=== PATIENT | female | born 2000 | race Caucasian/White ===

== ENCOUNTER 2024-01-02 11:50 | Inpatient (IN) ==
[2024-01-02] MEDS ORDERED: LIDOCAINE 1% LOCAL 20 ML VIAL INFIL PRN (12:51)
--- NOTE | 2024-01-02 12:53 | Ultrasound Report ---
US OB limited CLINICAL HISTORY: not beat found on bedside ultrasound per MD COMPARISON STUDY: No previous studies for comparison. TECHNIQUE: A limited transabdominal ultrasound was performed to assess for cardiac activi ty. FINDINGS: Please note that a dedicated anatomical survey was not performed. Femur length measur es 6.12 cm which corresponds to an estimated gestational age of 31 weeks and 5 days. No cardiac activity was identified. IMPRESSION: No cardiac activity identified. Findings consistent with demise. ACT 112: Negative or not required by law. Electronically signed by: Casimiro Baxter M.D. 01/02/2024 12:51 PM
[2024-01-02] MEDS: miSOPROStoL 50 MCG TAB PV ONE (13:32)
[2024-01-02 13:43] LABS: Hematocrit (blood only) 39.8 % (37.0-47.0); Hemoglobin 13.6 g/dl (12.0-16.0); Mean Corpuscular Hemoglobin 31.5 pg (25.0-34.0); Mean Corpuscular Hgb Conc 34.2 g/dL (32.0-36.0); Mean Corpuscular Volume 92.1 fL (80.0-100.0); Mean Platelet Volume 9.8 fL (9.4-12.4); Platelet Count 233 K/uL (130-400); RDW Coefficient of Variation 12.2 % (11.5-14.5); RDW Standard Deviation 41.2 fL (36.4-46.3); Red Blood Count 4.32 M/uL (4.20-5.40)
[2024-01-02 13:51] LABS: Albumin Globulin Ratio 1.1 (0.9-2); Albumin Level 3.6 gm/dl (3.4-5.0); BUN Creatinine Ratio 15.6 (10-20); Bilirubin,Total 0.2 mg/dl (0.2-1.0); Calcium 9.6 mg/dl (8.6-10.3); Creatinine Clr Calc Pharmacy 131.8 ml/min; Est GFR (African American) 124.4 ml/min; Est GFR (Non-African American) 107.3 ml/min; Globulin 3.4 gm/dl (2.5-4.0)
[2024-01-02 13:53] LABS: Amphetamines+Metham, Urine Neg (Neg); Barbiturates, Urine Neg (Neg); Benzodiazepine, Urine Neg (Neg); Cocaine, Urine Neg (Neg); MDMA (Ecstacy), Urine Neg (Neg); Marijuana, Urine Neg (Neg); Methadone, Urine Neg (Neg); Opiate, Urine Neg (Neg); Phencyclidine, Urine Neg (Neg)
--- NOTE | 2024-01-02 13:55 | History & Physical Report ---
Date of Service January 02, 2024 Assessment & Plan (1) demise, greater than 22 weeks, delivered, current hospitalization: Plan: Cytotec to induce labor Admission and Anticipated Discharge Date Admission Date: January 02, 2024 History of Present Illness Chief Complaint: decreases movement Primary Care Provider: FELICE PCP 23 F P0000 at 32.2 weeks presents to L&D at [facility] with c/o decreased movement. She states on she noted some decrease in movement and then drank some orange juice and started to feel the baby again. Yesterday evening she states this was the last time she felt any movement before going to sleep. This morning she called and felt no movement and was told to come to the hospital. I did a bedside ultrasound with no heart beat noted. This was confirmed with a formal ultrasound. Allergies Allergy/AdvReac Type Severity Reaction Status Date / Time No Known Allergies Allergy Verified 01/02/24 13:18 Patient History Social History Smoking Status: Unknown if ever smoked Hx Alcohol Use: No Hx Substance Use: No Preferred Language: Mosotho Communication Ability: Effective Fare Enforcement Officer Required: No Beliefs That Will Affect Care: None marital status: Single Current Living Situation: Significant Other OB History primip [employer]ORAGE SOL[employer]IONS ARCHITECT History history of abnormal Pap Review of Systems All systems reviewed & are unremarkable except as noted in HPI & below Physical Exam Constitutional: WD/WN, vitals as above Eyes: PERRL, conjunctivae normal, anicteric sclerae Respiratory: normal respiratory effort, lungs clear to auscultation Cardiovascular: RRR, no murmur, no edema Gastrointestinal (Abdomen): Inspection/Auscultation: abdomen normal to inspection Musculoskeletal: Extremities: extremities normal to inspection Skin: no rashes, warm and dry Neurologic: patellar DTR's 2+ bilat, sensation intact Psychiatric: A+Ox3, euthymic affect Genitourinary: no vaginal lesions, no adnexal mass Manual OB Exam: + cervical dilation fingertip, + cervical effacement 20% and + station high Cytotec 50 mcg placed vaginally. cervix is posterior and firm. Results & Data Vital Signs (Past 12 Hours) Vital Signs Temp Resp 01/02/24 13:38 37.2 C 16 Laboratory Results 01/02/24 13:08 WBC 10.80 RBC 4.32 Hgb 13.6 Hct 39.8 MCV 92.1 MCH 31.5 MCHC 34.2 RDW Std Deviation 41.2 RDW Coeff of Kalee 12.2 Plt Count 233 MPV 9.8 Diagnostic Findings ultrasound confirms demise Code Status & VTE Plan VTE Prophylaxis Plan VTE Prophylaxis will be ordered: No
[2024-01-02] MEDS: miSOPROStoL 50 MCG TAB ONE (16:50)
[2024-01-02] MEDS ORDERED: miSOPROStoL 50 MCG TAB PV SCH (17:30)
--- OUTSIDE RECORDS SUMMARY | 2024-01-02 18:04 | External Medical Summary | Summary of Care ---
Author Name Unknown Organization [facility] Address [address] [facility] [place] [address] Phone [phone] Care Team Providers Care Game Developer Name Role Phone Unavailable Primary Care Provider Unavailabl e Reason for Visit * Reason Comments Outpatient Testing Encounter Details Date Type Department Care Team (Late st Contact Info) Description 11/27/2023 10:20 AM EST Laboratory [facility] [id number] [facility] 132 [facility] [place] [address] Supervision of normal first , antepartum Allergies No known active allergiesdocumented as of this encounter (statuses as of 11/27/2023) Medications Medication Sig Dispensed Refills Start Date End Date Status 6.75-0.2 MG Oral Tablet Take by mouth. 0 Active documented as of this encounter (statuses as of 11/27/2023) Active Problems Problem Noted Date Diagnosed Date Supervision of normal first , antepartu m 07/16/2023 History of abnormal cervical Pap smear 3 Overview: 2021 abnormal pap and colpo done 10/2022 pap wnl Requesting records Estimated Date of Delivery Comme nts Yes 02/25/2024 Based on last me nstrual period of 05/21/2023 documented as of this encounter (statuses as of 11/27/2023) Immunizations Name Administration Dates Next Due TDAP (age 10 and older)(Boostrix) 11/27/2023 documented as of this encounter Social History Tobacco Use Types Packs/Day Years Used Date Smoking Tobacco: Never Smokeless Tobacco: Never Alcohol Use Standard Drinks/Week Comments Not Currently 0 (1 standard drink = 0.6 oz pur e alcohol) Hunger Vital Sign Answer Date Recorded Within the past 12 months, y ou worried that your food would run out before you got the money to buy more. Never true 09/29/20 23 Within the past 12 months, t he food you bought just didn't last and you didn't have money to get more. Never true 09/29/2023 [place] Depression Scale Answer Date Recorded [place] Depression Scale Total 3 11/27/2023 The thought of harming myself has occurred to me . Never 11/27/2023 Estimated Date of Delivery Comme nts Yes 02/25/2024 Based on last me nstrual period of 05/21/2023 Sex and Gender Information Value Date Recorded Sex Assigned at Female 06/29/2023 10:32 AM EDT Gender Identity Female 06/29/2023 10:24 AM EDT Sexual Orientation Straight 06/29/2023 10 :32 AM EDT Job Start Date Occupation Industry Not on file Not on file Not on file documented as of this encounter Plan of Treatment Upcoming Encounters Date Type Department Care Team (Late st Contact Info) Description 12/11/2023 8:45 AM EST Office Visit Gynecology/Obstetrics [facility] [address] [place] [address] Taylor Carlson CRNP [address] [place] [address] 12/25/2023 9:00 AM EST Office Visit Gynecology/Obstetrics [facility] [address] [place] [address] Matilda Rosales PA-C [address] [place] [address] 01/08/2024 9:00 AM EDT Office Visit Gynecology/Obstetrics [facility] [address] [place] [address] Matilda Rosales PA-C [address] [place] [address] 01/22/2024 9:00 AM EDT Office Visit Gynecology/Obstetrics [facility] [address] [place] [address] Matilda Rosales PA-C [address] [place] [address] 01/29/2024 9:30 AM EDT Office Visit Gynecology/Obstetrics [facility] [address] [place] [address] Yasmin Mcgee PA-C [address] [place], [place] [address], [place] [address] 02/05/2024 9:00 AM EDT Office Visit Gynecology/Obstetrics [facility] [address] [place] [address] Matilda Rosaels PA-C [address] [place] [address] 02/12/2024 9:00 AM EDT Office Visit Gynecology/Obstetrics [facility] [address] [place] [address] Matilda Rosales PA-C [address] [place] [address] 02/19/2024 9:00 AM EDT Office Visit Gynecology/Obstetrics [facility] [address] [place] [address] Matilda Rosales PA-C [address] [place] [address] 02/26/2024 10:30 AM EDT [facility] [address] [place] [address] Taylor Carlson CRNP [address] [place] [address] Pending Results Name Type Priority Associated Diagnoses Date /Time CBC WITH WBC DIFFERENTIAL AND ANEMIA REFLEX WORKUP Lab Routine Supervision of normal first , antepartum 11/27/2023 11:18 AM EST SYPHILIS ANTIBODY SCREEN WITH REFLEX TO RPR Lab Routine Supervision of normal first , antepartum 11/27/2023 11:18 AM EST 50-G GESTATIONAL GLUCOSE, 1 HOUR Lab Routine Supervision of normal first , antepartum 11/27/2023 11:18 AM EST ANEMIA CBC Lab Routine Supervision of normal first , antepartum 11/27/2023 11:18 AM EST DIFFERENTIAL, AUTOMATED Lab Routine Supervision of normal first , antepartum 11/27/2023 11:18 AM EST ANEMIA REFLEX CHEMISTRY HOLD Lab Routine Supervision of normal first , antepartum 11/27/2023 11:18 AM EST SYPHILIS ANTIBODY SCREEN Lab Routine Supervision of normal first , antepartum 11/27/2023 11:18 AM EST Health Maintenance Due Date Last Done Comments Depression Screening 2010 Pap Smear 2019 COVID-19 Vaccine ( season) 2023 08/09/2021, 07/12/2021 Influenza Vaccine (FLU shot) (#1) 2023 11/17/2013, 11/04/2012 DTaP,Tdap,and Td Vaccines (8 - Td or Tdap) 11/27/2033 11/27/2023, 09/14/2009, 03/25/2002, Additional history exists Hepatitis B Completed 1998, 04/1998, 1998 GARDASIL-HPV IMMUNIZATION SERIES Completed 10/15/2011, 10/15/2010, 09/14/2009 MENINGOCOCCAL (MENACTRA/MENVEO) Aged Out 01/07/2016, 01/07/2016, 09/14/2009, Additional history exists No longer eligible based on patient's age to complete this topic Pneumococcal Vaccine: Pediatrics (0 to 5 Years) and At-Risk Patients (6 to 64 Years) Aged Out No longer eligible based on patient's age to complete this topic documented as of this encounter Medical Devices Not on filedocumented as of this encounter Visit Diagnoses Diagnosis Supervision of normal first , antepartum documented in this encounter
--- OUTSIDE RECORDS SUMMARY | 2024-01-02 18:04 | External Medical Summary | Summary of Care ---
Author Name Unknown Organization [facility] Address [address] [place] [address] Phone [phone] Care Team Providers Care Supervisor Porcelain Department Name Role Phone Unavailable Primary Care Provider Unavailabl e Reason for Visit * Reason Comments Return Visit Encounter Details Date Type Department Care Team (Late st Contact Info) Description 12/25/2023 9:00 AM EST Office Visit Gynecology/Obstetric s [facility] [address] [place] [address] Matilda Rosales PA-C [address] [place] [address] Supervision of normal first , antepartum* Allergies No known active allergiesdocumented as of this encounter (statuses as of 12/25/2023) Medications Medication Sig Dispensed Refills Start Date End Date Status 6.75-0.2 MG Oral Tablet Take by mouth. 0 Active Breast Pump Dispense double electric breast pump. Dx:Z39.1 1 Each 0 12/11/2023 Active documented as of this encounter (statuses as of 12/25/2023) Active Problems Problem Noted Date Diagnosed Date Supervision of normal first , antepartu m 07/16/2023 History of abnormal cervical Pap smear 3 Overview: 2021 abnormal pap and colpo done 10/2022 pap wnl Requesting records Estimated Date of Delivery Comme nts Yes 02/25/2024 Based on last me nstrual period of 05/21/2023 documented as of this encounter (statuses as of 12/25/2023) Immunizations Name Administration Dates Next Due TDAP [...] money to get more. Never true 09/29/2023 [place] Depression Scale Answer Date Recorded [place] Depression Scale Total 3 11/27/2023 The thought [...] on file documented as of this encounter Last Filed Vital Signs Vital Sign Reading Time Taken Comments Blood Pressure 104/68 12/25/2023 8:43 AM EST Pulse - - Temperature - - Respiratory Rate - - Oxygen Saturation - - Inhaled Oxygen Concentration - - Weight 87.5 kg (193 lb) 12/25/2023 8:43 AM EST Height 175.3 cm (5' 9") 12/25/2023 8:43 AM EST Body Mass Index 28.5 12/25/2023 8:43 AM EST documented in this encounter Progress Notes * Matilda Rosales PA-C - 12/25/2023 9:01 AM EST 31w1d Doing well, no concerns. Denies VB, LOF, contractions. Pos FM. Her sister had baby boy today! Matilda Rosales PA-C documented in this encounter Nursing Notes * Goldie Hernandez LPN - 12/25/2023 8:54 AM EST 31w1d Dropping off fmla- will order picker next visit. documented in this encounter Plan of Treatment Upcoming Encounters Date Type Department Care Team (Late st Contact Info) Description 01/08/2024 9:00 AM EDT Office Visit Gynecology/Obstetrics [facility] [address] [place] [address] Matilda Rosales PA-C [address] [place] [address] 01/22/2024 9:00 AM EDT Office Visit Gynecology/Obstetrics [facility] [address] [place] [address] Matilda Rosales PA-C [address] [place] [address] 01/29/2024 9:30 AM EDT Office Visit Gynecology/Obstetrics [facility] [address] [place] [address] Yasmin Mcgee PA-C [address] [place] [address] [place] [address] 02/05/2024 9:00 AM EDT Office Visit Gynecology/Obstetrics [facility] [address] [place] [address] Matilda Rosales PA-C [address] [place] [address] 02/12/2024 9:00 AM EDT Office Visit Gynecology/Obstetrics [facility] [address] [place] [address] Matilda Rosales PA-C [address] [place] [address] 02/19/2024 9:00 AM EDT Office Visit Gynecology/Obstetrics [facility] [address] [place] [address] Matilda Rosales PA-C [address] [place] [address] Health Maintenance Due Date Last Done Comments [...] Diagnoses Diagnosis Supervision of normal first , antepartum- Primary documented in this encounter
--- OUTSIDE RECORDS SUMMARY | 2024-01-02 18:04 | External Medical Summary | Summary of Care ---
Author Name Unknown Organization [facility] Address [address] [place] [address] Phone [phone] Care Team Providers Care Wealth Management Advisor Name Role Phone Unavailable Primary Care Provider Unavailabl e Reason for Visit * Reason Onset Date Comments Forms Request 12/25/2023 Encounter Details Date Type Department Care Team (Late st Contact Info) Description 12/25/2023 Telephone Gynecology/Obstetrics [facility] [address] [place] [address] Matilda Rosales PA-C [address] [place] [address] Forms Request Allergies No known active allergiesdocumented as of this encounter (statuses as of 12/28/2023) Medications Medication Sig Dispensed Refills Start Date End Date Status 6.75-0.2 MG Oral Tablet Take by mouth. 0 Active Breast Pump Dispense double electric breast pump. Dx:Z39.1 1 Each 0 12/11/2023 Active documented as of this encounter (statuses as of 12/28/2023) Active Problems Problem Noted Date Diagnosed Date Supervision of normal first , antepartu m 07/16/2023 History of abnormal cervical Pap smear Overview: 2021 abnormal pap and colpo done 10/2022 pap wnl Requesting records Estimated Date of Delivery Comme nts Yes 02/25/2024 Based on last me nstrual period of 05/21/2023 documented as of this encounter (statuses as of 12/28/2023) Immunizations Name Administration Dates Next Due TDAP [...] money to get more. Never true 09/29/2023 [place] Depression Scale Answer Date Recorded [place] Depression Scale Total 3 11/27/2023 The thought [...] on file documented as of this encounter Miscellaneous Notes * Telephone Encounter - Goldie Hernandez LPN - 12/28/2023 1:33 PM EDT FMLA signed and in triage for patient pick-up. Copies in scan bin. * Telephone Encounter - Goldie Hernandez LPN - 12/25/2023 8:58 AM EST FMLA forms received 12/25/2023 Would pt like forms faxed no, will shredder picker next visit Does pt need notified when done? no Patient Phone Numbers On Goldie's desk. documented in this encounter Plan of Treatment Upcoming Encounters Date Type Department Care Team (Late st Contact Info) Description 01/08/2024 9:00 AM EDT Office Visit Gynecology/Obstetrics [facility] [address] [place] [address] Matilda Rosales PA-C [address] [place] [address] 01/22/2024 9:00 AM EDT Office Visit Gynecology/Obstetrics [facility] [address] [place] [address] Matilda Rosales PA-C [address] [place] [address] 01/29/2024 9:30 AM EDT Office Visit Gynecology/Obstetrics [facility] [address] [place] [address] Yasmin Mcgee PA-C [address] [place] [address] [place] [address] 02/05/2024 9:00 AM EDT Office Visit Gynecology/Obstetrics [facility] [address] [place] [address] Matilda Rosales PA-C [address] [place] [address] 02/12/2024 9:00 AM EDT Office Visit Gynecology/Obstetrics [facility] [address] [place] [address] Matilda Rosales PA-C [address] [place] [address] 02/19/2024 9:00 AM EDT Office Visit Gynecology/Obstetrics [facility] [address] [place] [address] Matilda Rosales PA-C [address] [place] [address] Health Maintenance Due Date Last Done Comments Depression Screening 2010 Pap Smear 2019 COVID-19 Vaccine (2022- season) 2023 08/09/2021, 07/12/2021 Influenza Vaccine (FLU [...]
--- OUTSIDE RECORDS SUMMARY | 2024-01-02 18:04 | External Medical Summary | Summary of Care ---
Author Name Unknown Organization [facility] Address [address] [facility] [place] [address] Phone [phone] Care Team Providers Care Accredited Farm Manager Name Role Phone Unavailable Primary Care Provider Unavailabl e Reason for Visit * Reason Comments Outpatient Testing Encounter Details Date Type Department Care Team (Late st Contact Info) Description 10/13/2023 2:00 PM EST [facility] [id number] [facility] 132 [facility] [place] [address] Supervision of normal first , antepartum Allergies No known active allergiesdocumented as of this encounter (statuses as of 10/13/2023) Medications Medication Sig Dispensed Refills Start Date End Date Status 6.75-0.2 MG Oral Tablet Take by mouth. 0 Active documented as of this encounter (statuses as of 10/13/2023) Active Problems Problem Noted Date Diagnosed Date Supervision of normal first , antepartu m 07/16/2023 History of abnormal cervical Pap smear 3 Overview: 2021 abnormal pap and colpo done 10/2022 pap wnl Requesting records Estimated Date of Delivery Comme nts Yes 02/25/2024 Based on last me nstrual period of 05/21/2023 documented as of this encounter (statuses as of 10/13/2023) Social History Tobacco Use Types Packs/Day Years [...] money to get more. Never true 09/29/2023 [place] Depression Scale Answer Date Recorded [place] Depression Scale Total 3 07/16/2023 The thought of harming myself has occurred to me . Never 07/16/2023 Estimated Date of Delivery Comme nts Yes [...] Care Team (Late st Contact Info) Description 11/13/2023 8:45 AM EST Office Visit Gynecology/Obstetrics [facility] [address] [place] [address] Jaqueline Horton CRNP [address] [place] [address] 12/11/2023 8:45 AM EST Office Visit Gynecology/Obstetrics [facility] [address] [place] [address] Taylor Carlson CRNP [address] [place] [address] Pending Results Name Type Priority Associated Diagnoses Date /Time MATERNAL SERUM AFP Lab Routine Supervision of normal first , antepartum 10/13/2023 1:48 PM EST Health Maintenance Due Date Last Done Comments Depression Screening 2010 Pap Smear 2019 DTaP,Tdap,and Td Vaccines (7 - Td or Tdap) 09/14/2019 09/14/2009, 03/25/2002, 09/30/1999, Additional history exists COVID-19 Vaccine ( - 2022- season) 2023 08/09/2021, 07/12/2021 Influenza Vaccine (FLU shot) (#1) 2023 11/17/2013, 11/04/2012 Hepatitis B Completed 1998, 04/1998, 1998 GARDASIL-HPV [...]
--- OUTSIDE RECORDS SUMMARY | 2024-01-02 18:04 | External Medical Summary | Summary of Care ---
Author Name Unknown Organization [facility] Address [address] [place] [address] Phone [phone] Care Team Providers Care Radio Equipment Installer Name Role Phone Unavailable Primary Care Provider Unavailabl e Reason for Visit * Reason Onset Date Comments Forms Request 12/25/2023 Encounter Details Date Type Department Care Team (Late st Contact Info) Description 12/25/2023 Telephone Gynecology/Obstetrics [facility] [address] [place] [address] Matilda Rosales PA-C [address] [place] [address] Forms Request Allergies No known active allergiesdocumented [...] money to get more. Never true 09/29/2023 [place] Depression Scale Answer Date Recorded [place] Depression Scale Total 3 11/27/2023 The thought [...] signed and in triage for patient pick-up. * Telephone Encounter - Goldie Hernandez LPN - 12/25/2023 8:58 AM EST FMLA forms received 12/25/2023 Would pt like forms faxed no, will sweet pickle maker next visit Does pt need notified when done? no Patient Phone Numbers On Goldie's desk. documented in this encounter Plan of Treatment Upcoming Encounters Date Type Department Care Team (Late st Contact Info) Description 01/08/2024 9:00 AM EDT Office Visit Gynecology/Obstetrics [facility] [address] [place] [address] Matilda Rosales PA-C [address] [place] [address] 01/22/2024 9:00 AM EDT Office Visit Gynecology/Obstetrics [facility] [address] [place] [address] Matilda Rosales PA-C [address] [place] [address] 01/29/2024 9:30 AM EDT Office Visit Gynecology/Obstetrics [facility] [address] [place] [address] Yasmin Mcgee PA-C [address] [place] [address] [place] [address] 02/05/2024 9:00 AM EDT Office Visit Gynecology/Obstetrics [facility] [address] [place] [address] Matilda Rosales PA-C [address] [place] [address] 02/12/2024 9:00 AM EDT Office Visit Gynecology/Obstetrics [facility] [address] [place] [address] Matilda Rosales PA-C [address] [place] [address] 02/19/2024 9:00 AM EDT Office Visit Gynecology/Obstetrics [facility] [address] [place] [address] Matilda Rosales PA-C [address] [place] [address] Health Maintenance Due Date Last Done Comments [...]
--- OUTSIDE RECORDS SUMMARY | 2024-01-02 18:04 | External Medical Summary | Summary of Care ---
Author Name Unknown Organization [facility] Address [address] [facility] [place] [address] Phone [phone] Care Team Providers Care Alignment Mechanic Name Role Phone Unavailable Primary Care Provider Unavailabl e Reason for Visit * Reason Comments Return Visit Encounter Details Date Type Department Care Team (Late st Contact Info) Description 11/27/2023 10:45 AM EST Office Visit Gynecology/Obstetric s [facility] [address] [place] [address] Matilda Rosales PA-C [address] [place] [address] Supervision of normal first , antepartum*; Need for dxqdkpvbgu-vktzyjy-ju rtussis (Tdap) vaccine Allergies No known active allergiesdocumented as of [...] money to get more. Never true 09/29/2023 [place] Depression Scale Answer Date Recorded [place] Depression Scale Total 3 11/27/2023 The thought [...] Sign Reading Time Taken Comments Blood Pressure 112/68 11/27/2023 10:20 AM EST Pulse - - Temperature - - Respiratory Rate - - Oxygen Saturation - - Inhaled Oxygen Concentration - - Weight 84.4 kg (186 lb) 11/27/2023 10:20 AM EST Height 175.3 cm (5' 9") 11/27/2023 10:20 AM EST Body Mass Index 27.47 11/27/2023 10:20 AM EST documented in this encounter Progress Notes * Matilda Rosales PA-C - 11/27/2023 10:45 AM EST 27w0d Completed third tri labs including glucola today. Counseled on TDaP vaccine, accepts and given. Denies VB, LOF, contractions. Good FM. RTC in 2 weeks Matilda Rosales PA-C documented in this encounter Nursing Notes * Goldie Hernandez LPN - 11/27/2023 10:40 AM EST 27w1d Denies concerns Completing 28 wk labs today, Would like tdap. Patient here for tdap injection. Patient doing well no complaints. Injection given IM as ordered. Patient tolerated well. Patient to follow up as directed. Patient instructed to call if any complications. Patient verbalized understanding of instructions given and her follow up appt for CECILIO Injection site: Left Deltoid Medication Source: Dispensed stock medication documented in this encounter Plan of Treatment Upcoming Encounters Date Type Department Care Team (Late st Contact Info) Description 12/11/2023 8:45 AM EST Office Visit Gynecology/Obstetrics [facility] [address] [place] [address] Taylor Carlson CRNP [address] [place] [address] 12/25/2023 9:00 AM EST Office Visit Gynecology/Obstetrics [facility] [address] [place] [address] Matilda Rosales PA-C [address] [place] [address] 01/08/2024 9:00 AM EDT Office Visit Gynecology/Obstetrics [facility] [address] [place] [address] Matilda Rosales PA-C [address] [place] [address] 01/22/2024 9:00 AM EDT Office Visit Gynecology/Obstetrics [facility] [address] [place] [address] Matilda Rosales PA-C [address] [place] [address] 01/29/2024 9:30 AM EDT Office Visit Gynecology/Obstetrics [facility] [address] [place] [address] Yasmin Mcgee PA-C [address] [place], [place] [address] [address] 02/05/2024 9:00 AM EDT Office Visit Gynecology/Obstetrics [facility] [address] [place] [address] Matilda Rosales PA-C [address] [place] [address] 02/12/2024 9:00 AM EDT Office Visit Gynecology/Obstetrics [facility] [address] [place] [address] Matilda Rosales PA-C [address] [place] [address] 02/19/2024 9:00 AM EDT Office Visit Gynecology/Obstetrics [facility] [address] [place] [address] Matilda Rosales PA-C [address] [place] [address] 02/26/2024 10:30 AM EDT Office Visit Gynecology/Obstetrics [facility] [address] [place] [address] Taylor Carlson CRNP [address] [place] [address] Health Maintenance Due Date Last Done Comments [...] Supervision of normal first , antepartum- Primary Need for mdejhdzndg-bkisiwn-njzkbxadz (Tdap) vaccine Need for prophylactic vaccination with combined wijxxvjlsp-pyqgakn-ccmvpmxwn (DTP) vaccine documented in this encounter
--- OUTSIDE RECORDS SUMMARY | 2024-01-02 18:04 | External Medical Summary | Summary of Care ---
Author Name Unknown Organization [facility] Address [address] [facility] [place] [address] Phone [phone] Care Team Providers Care Windows 7 Deployment Lead Name Role Phone Unavailable Primary Care Provider Unavailabl e Reason for Visit * Reason Comments Return Visit Encounter Details Date Type Department Care Team (Late st Contact Info) Description 10/13/2023 1:45 PM EST Office Visit Gynecology/Obstetric s [facility] [address] [place] [address] BackJaqueline gtz CRNP [address] [place] [address] Supervision of normal first , antepartum* Allergies [...] money to get more. Never true 09/29/2023 [place] Depression Scale Answer Date Recorded [place] Depression Scale Total 3 07/16/2023 The thought [...] Sign Reading Time Taken Comments Blood Pressure 102/64 10/13/2023 1:36 PM EST Pulse - - Temperature - - Respiratory Rate - - Oxygen Saturation - - Inhaled Oxygen Concentration - - Weight 78.9 kg (174 lb) 10/13/2023 1:36 PM EST Height 175.3 cm (5' 9") 10/13/2023 1:36 PM EST Body Mass Index 25.7 10/13/2023 1:36 PM EST documented in this encounter Progress Notes * Jaqueline Horton CRNP - 10/13/2023 1:38 PM EST 20w5d Anatomy scan today, finalized report in progress; +cardiac activity on scan. Feeling movement. No cramping/bleeding. MSAFP ordered. 4 week return JOJO Zimmerman * Sara Doyle LPN - 10/13/2023 1:36 PM EST 20w5d Had anatomy today documented in this encounter Plan of Treatment Upcoming Encounters Date Type Department Care Team (Late st Contact Info) Description 10/13/2023 2:00 PM EST Laboratory Laboratory, [facility] [address] [place] [address] [facility] [address] [place] [address] Supervision of normal first , antepartum 11/13/2023 8:45 AM EST Office Visit Gynecology/Obstetric s [facility] [address] [place] [address] Jaqueline Horton CRNP [address] [place] [address] 12/11/2023 8:45 AM EST Office Visit Gynecology/Obstetric s [facility] [address] [place] [address] Taylor Carlson CRNP [address] [place] [address] Pending Results Name Type Priority Associated Diagnoses Date /Time MATERNAL SERUM AFP Lab Routine Supervision of normal first , antepartum 10/13/2023 1:48 PM EST Scheduled Orders Name Type Priority Associated Diagnoses Orde r Schedule MATERNAL SERUM AFP Lab Routine Supervision of normal first , antepartum Expected: 10/13/2023 (Approximate), Expires: 10/13/2024 Health Maintenance Due Date Last Done Comments Depression Screening 2010 Pap Smear 2019 DTaP,Tdap,and Td Vaccines (7 - Td or Tdap) 09/14/2019 09/14/2009, 03/25/2002, 09/30/1999, Additional history exists COVID-19 Vaccine ( season) 2023 08/09/2021, 07/12/2021 [...] Supervision of normal first , antepartum- Primary Supervision of normal first , antepartum documented in this encounter
--- OUTSIDE RECORDS SUMMARY | 2024-01-02 18:04 | External Medical Summary | Summary of Care ---
Author Name Unknown Organization [facility] Address [address] [facility] [address] Phone [phone] Care Team Providers Care Bag Machine Adjuster Name Role Phone Unavailable Primary Care Provider Unavailabl e Reason for Visit * Reason Comments Return Visit Encounter Details Date Type Department Care Team (Late st Contact Info) Description 12/11/2023 8:45 AM EST Office Visit Gynecology/Obstetric s [facility] [address] [place] [address] Taylor Carlson CRNP [address] [place] [address] Supervision of normal first , antepartum* Allergies No known active allergiesdocumented as of this encounter (statuses as of 12/16/2023) Medications Medication Sig Dispensed Refills Start Date End Date Status 6.75-0.2 MG Oral Tablet Take by mouth. 0 Active Breast Pump Dispense double electric breast pump. Dx:Z39.1 1 Each 0 12/11/2023 Active documented as of this encounter (statuses as of 12/16/2023) Active Problems Problem Noted Date Diagnosed Date Supervision of normal first , antepartu m 07/16/2023 History of abnormal cervical Pap smear 3 Overview: 2021 abnormal pap and colpo done 10/2022 pap wnl Requesting records Estimated Date of Delivery Comme nts Yes 02/25/2024 Based on last me nstrual period of 05/21/2023 documented as of this encounter (statuses as of 12/16/2023) Immunizations Name Administration Dates Next Due TDAP [...] money to get more. Never true 09/29/2023 Sl[place] Depression Scale Answer Date Recorded [place] Depression Scale Total 3 11/27/2023 The thought [...] Sign Reading Time Taken Comments Blood Pressure 98/74 12/11/2023 8:32 AM EST Pulse - - Temperature - - Respiratory Rate - - Oxygen Saturation - - Inhaled Oxygen Concentration - - Weight 86.6 kg (191 lb) 12/11/2023 8:32 AM EST Height 175.3 cm (5' 9") 12/11/2023 8:32 AM EST Body Mass Index 28.21 12/11/2023 8:32 AM EST documented in this encounter Progress Notes * Taylor Carlson CRNP - 12/11/2023 8:58 AM EST 29w1d Complaints: none Feeling well overall. Good FM. No contractions, bleeding, or LOF. Breast pump rx today. JOJO Thrasher documented in this encounter Nursing Notes * Goldie Hernandez LPN - 12/11/2023 8:35 AM EST 29w1d Denies concerns. documented in this encounter Plan of Treatment Upcoming Encounters Date Type Department Care Team (Late st Contact Info) Description 12/25/2023 9:00 AM EST Office Visit Gynecology/Obstetrics [facility] [address] [place] [address] Matilda Rosales PA-C [address] [place] [address] 01/08/2024 9:00 AM EDT Office Visit Gynecology/Obstetrics [facility] [address] [place] [address] Matilda Rosales PA-C [address] [place] [address] 01/22/2024 9:00 AM EDT Office Visit Gynecology/Obstetrics [facility] [address] [place] [address] Matilda Rosales PA-C [address] [place] [address] 01/29/2024 9:30 AM EDT Office Visit Gynecology/Obstetrics [facility] [address] [place] [address] Yasmin Mcgee PA-C [facility] [place] [address] 02/05/2024 9:00 AM EDT Office Visit Gynecology/Obstetrics [facility] [address] [place] [address] Matilda Rosales PA-C [address] [place], [place] [address] 02/12/2024 9:00 AM EDT Office Visit Gynecology/Obstetrics [facility] [address] [place], [place] [address] Matilda Rosales PA-C [address] [place] [address] 02/19/2024 9:00 AM EDT Office Visit Gynecology/Obstetrics [facility] [address] [place], [place] [address] Matilda Rosales PA-C [address] [place], [place] [address] Health Maintenance Due Date Last Done Comments [...]
--- OUTSIDE RECORDS SUMMARY | 2024-01-02 18:04 | External Medical Summary ---
Author Name Unknown Address Unknown Organization [id number]:LABORATORY [facility] - [address] [place] [address] Laboratory Report Ordering Provider Test Date Status SULEMA URRUTIA 11/27/2023 11:18:17 Final Observation Date Value Abnormality Reference (Units ) Status Treponema pallidum Ab [Presence] in Serum by Immunoassay 11/27/2023 11:18:17 Nonreactive Nonreactive Final No serologic evidence of syp hilis. No additional testing clinicially indicated at this time. Consider repeat testing in 2-4 weeks if acute or primary syphilis is suspected. Performing Location LABORATORY [facility] - [address] [place] [address]
--- OUTSIDE RECORDS SUMMARY | 2024-01-02 18:04 | External Medical Summary ---
Author Name Unknown Address Unknown Organization K01:LABORATORY [facility] [place] - [address] [place] [address] Laboratory Report Ordering Provider Test Date Status RENANBACKER 11/27/2023 11:18:17 Final Observation Date Value Abnormality Reference (Units ) Status WBC, Total 11/27/2023 11:18:17 11.88 Above high normal 4 .00-10.80 (K/uL) Final RBC 11/27/2023 11:18:17 3.89 3.85-5.15 (M/uL) Final Hemoglobin 11/27/2023 11:18:17 12.5 12.0-15.3 (g/dL) Final Anemia reflex testing trigge rs on a HGB < 12.0 for Females and HGB < 13.0 for Males in accordance with the WHO Anemia Guidelines
Anemia reflex testing triggers on a HGB < 12.0 for Females and HGB < 13.0 for Males in accordance with the WHO Anemia Guidelines HCT 11/27/2023 11:18:17 37.9 36.0-45.2 (%) Final MCV 11/27/2023 11:18:17 97.4 81.5-97.5 (fL) Final MCH 11/27/2023 11:18:17 32.1 27.0-34.0 (pg) Final MCHC 11/27/2023 11:18:17 33.0 32.0-36.0 (g/dL) Final RDW 11/27/2023 11:18:17 12.6 11.5-15.5 (%) Final Platelets 11/27/2023 11:18:17 286 140-400 (K /uL) Final MPV 11/27/2023 11:18:17 9.6 6.6-11.1 ( fL) Final Nucleated erythrocytes/100 leukocytes [Ratio] in Blood by Automated count 11/27/2023 11:18:17 0 <=0 (/100 WBCs) [facility] Performing Location LABORATORY [facility] - [address] [facility] [address]
--- OUTSIDE RECORDS SUMMARY | 2024-01-02 18:04 | External Medical Summary ---
Author Name Unknown Address Unknown Organization K01:LABORATORY [facility] [place] - [address] [place] [address] Laboratory Report Ordering Provider Test Date Status RENANBACKER 11/27/2023 11:18:17 Final Observation Date Value Abnormality Reference (Units ) Status SYNC LEUKOCYTES IN BLOOD BY AUTOMATED COUNT 11/27/2023 11:18:17 11.88 Above high normal 4.00-10.80 (K/uL) Final Segs 11/27/2023 11:18:17 76.0 Above high normal 40.0-75.0 (%) Final Lymphs % 11/27/2023 11:18:17 18.8 18.0-42.0 (%) Final Monos 11/27/2023 11:18:17 4.0 1.0-11.0 (%) Final Eosinophils 11/27/2023 11:18:17 0.4 0.0-6.0 (%) Final Basos 11/27/2023 11:18:17 0.3 0.0-2.0 (%) Final Immature Granulocyte, Percent 11/27/2023 11:18:17 0.5 0.0-2.0 (%) Final Absolute Segs 11/27/2023 11:18:17 9.03 Above high normal 1.80-7.70 (K/uL) Final Lymphs, absolute 11/27/2023 11:18:17 2.23 1.00-4.80 (K/ul) Final Monos, Abs 11/27/2023 11:18:17 0.47 0.00-1.10 (K/uL) Final Eos, Abs 11/27/2023 11:18:17 0.05 0.00-0.70 (K/uL) Final Basos, Abs 11/27/2023 11:18:17 0.04 0.00-0.20 (K/uL) Final Immature Granulocytes, Number 11/27/2023 11:18:17 0.06 0.00-0.20 (K/uL) Final Performing Location LABORATORY [facility] [place] - [address] [facility] [address]
--- OUTSIDE RECORDS SUMMARY | 2024-01-02 18:04 | External Medical Summary | Summary of Care ---
Author Name Unknown Organization [facility] Address [address] [facility] [place] [address] Phone [phone] Care Team Providers Care Accounting Recruiter Name Role Phone Unavailable Primary Care Provider Unavailabl e Reason for Visit * Reason Comments Return Visit Encounter Details Date Type Department Care Team (Late st Contact Info) Description 11/13/2023 8:45 AM EST Office Visit Gynecology/Obstetric s [facility] [address] [place] [address] BackJaqueline gtz CRNP [address] [place] [address] Supervision of normal first , antepartum* Allergies No known active allergiesdocumented as of this encounter (statuses as of 11/13/2023) Medications Medication Sig Dispensed Refills Start Date End Date Status 6.75-0.2 MG Oral Tablet Take by mouth. 0 Active documented as of this encounter (statuses as of 11/13/2023) Active Problems Problem Noted Date Diagnosed Date Supervision of normal first , antepartu m 07/16/2023 History of abnormal cervical Pap smear Overview: 2021 abnormal pap and colpo done 10/2022 pap wnl Requesting records Estimated Date of Delivery Comme nts Yes 02/25/2024 Based on last me nstrual period of 05/21/2023 documented as of this encounter (statuses as of 11/13/2023) Social History Tobacco Use Types Packs/Day Years [...] money to get more. Never true 09/29/2023 [place] Depression Scale Answer Date Recorded [place] Depression Scale Total 3 07/16/2023 The thought [...] Sign Reading Time Taken Comments Blood Pressure 108/68 11/13/2023 8:31 AM EST Pulse - - Temperature - - Respiratory Rate - - Oxygen Saturation - - Inhaled Oxygen Concentration - - Weight 83.5 kg (184 lb) 11/13/2023 8:31 AM EST Height - - Body Mass Index 27.17 10/13/2023 1:36 PM EST documented in this encounter Progress Notes * Jaqueline Horton CRNP - 11/13/2023 8:35 AM EST 25w1d No bleeding/cramping, + movement. 3rd trimester labs ordered, discussed Tdap. 2 week return JOJO Zimmerman * Lucy Claros LPN - 11/13/2023 8:31 AM EST 25w1d Denies vaginal bleeding/rom + movement No new concerns documented in this encounter Plan of Treatment Upcoming Encounters Date Type Department Care Team (Late st Contact Info) Description 11/27/2023 10:20 AM EST [facility] [address] [place] [address] [facility] [address] [place] [address] 11/27/2023 10:45 AM EST Office Visit Gynecology/Obstetrics [facility] [address] [place] [address] Matilda Rosales PA-C [address] [place] [address] 12/11/2023 8:45 AM EST Office Visit Gynecology/Obstetrics [facility] [address] [place] [address] Taylor Carlson CRNP [address] [place] [address] 12/25/2023 9:00 AM EST Office Visit Gynecology/Obstetrics [facility] [address] [place] [address] Matilda Rosales PA-C [address] [place] [address] 01/08/2024 9:00 AM EDT Office Visit Gynecology/Obstetrics [facility] [address] [place] [address] Matilda Rosales PA-C [address] [place] [address] 01/22/2024 9:00 AM EDT Office Visit Gynecology/Obstetrics [facility] [address] [place] [address] Matilda Rosales PA-C [address] [place] [address] 01/29/2024 9:30 AM EDT Office Visit Gynecology/Obstetrics [facility] [address] [place] [address] Peyton Wang, JOE, CNM [address] [facility] [place] [address] 02/05/2024 9:00 AM EDT Office Visit Gynecology/Obstetrics [facility] [address] [place] [address] Matilda Rosales PA-C [address] [place] [address] 02/12/2024 9:00 AM EDT Office Visit Gynecology/Obstetrics [facility] [address] [place] [address] Matilda Rosales PA-C [address] [place] [address] 02/19/2024 9:00 AM EDT Office Visit Gynecology/Obstetrics [facility] [address] [place] [address] Matilda Rosales PA-C [address] [place] [address] 02/26/2024 10:30 AM EDT Office Visit Gynecology/Obstetrics [facility] [address] [place], [place] [id number] Taylor Carlson CRNP [address] [place] [address] Scheduled Orders Name Type Priority Associated Diagnoses Orde r Schedule CBC WITH WBC DIFFERENTIAL AND ANEMIA REFLEX WORKUP Lab Routine Supervision of normal first , antepartum Expected: 11/27/2023 (Approximate), Expires: 11/13/2024 SYPHILIS ANTIBODY SCREEN WITH REFLEX TO RPR Lab Routine Supervision of normal first , antepartum Expected: 11/27/2023 (Approximate), Expires: 11/13/2024 50-G GESTATIONAL GLUCOSE, 1 HOUR Lab Routine Supervision of normal first , antepartum Expected: 11/27/2023 (Approximate), Expires: 11/13/2024 Health Maintenance Due Date Last Done Comments [...]
--- OUTSIDE RECORDS SUMMARY | 2024-01-02 18:04 | External Medical Summary | Summary of Care ---
Author Name Unknown Organization [facility] Address [address] [facility] [address] Phone [phone] Care Team Providers Care Allopathic Doctor Name Role Phone Unavailable Primary Care Provider Unavailabl e Reason for Visit * Reason Comments Return Visit Encounter Details Date Type Department Care Team (Late st Contact Info) Description 12/11/2023 8:45 AM EST Office Visit Gynecology/Obstetric s [facility] [address] [place] [address] Taylor Carlson CRNP [address] [place] [address] Supervision of normal first , antepartum* Allergies No known active allergiesdocumented as of this encounter (statuses as of 12/11/2023) Medications Medication Sig Dispensed Refills Start Date End Date Status 6.75-0.2 MG Oral Tablet Take by mouth. 0 Active Breast Pump Dispense double electric breast pump. Dx:Z39.1 1 Each 0 12/11/2023 Active documented as of this encounter (statuses as of 12/11/2023) Active Problems Problem Noted Date Diagnosed Date Supervision of normal first , antepartu m 07/16/2023 History of abnormal cervical Pap smear 3 Overview: 2021 abnormal pap and colpo done 10/2022 pap wnl Requesting records Estimated Date of Delivery Comme nts Yes 02/25/2024 Based on last me nstrual period of 05/21/2023 documented as of this encounter (statuses as of 12/11/2023) Immunizations Name Administration Dates Next Due TDAP [...] money to get more. Never true 09/29/2023 [place] Depression Scale Answer Date Recorded [place] Depression Scale Total 3 11/27/2023 The thought [...] [facility] [address] [place] [address] Matilda Rosales PA-C [address] [place] [address] 01/08/2024 9:00 AM EDT Office Visit Gynecology/Obstetrics [facility] [address] [place] [address] Matilda Rosales PA-C [address] [place] [address] 01/22/2024 9:00 AM EDT Office Visit Gynecology/Obstetrics [facility] [address] [place] [address] Matilda Rosales PA-C [address] [place] [address] 01/29/2024 9:30 AM EDT Office Visit Gynecology/Obstetrics [facility] [address] [place] [address] Yasmin Mcgee PA-C [facility] [place] [address] 02/05/2024 9:00 AM EDT Office Visit Gynecology/Obstetrics [facility] [address] [place] [address] Matilda Rosales PA-C [address] [place] [address] 02/12/2024 9:00 AM EDT Office Visit Gynecology/Obstetrics [facility] [address] [place] [address] Matilda Rosales PA-C [address] [place] [address] 02/19/2024 9:00 AM EDT Office Visit Gynecology/Obstetrics [facility] [address] [place] [address] Matilda Rosales PA-C [address] [place] [address] 02/26/2024 10:30 AM EDT Office Visit Gynecology/Obstetrics [facility] [address] [place] [address] Taylor Carlson CRNP [address] [place] [address] Health Maintenance Due Date Last Done Comments [...]
--- OUTSIDE RECORDS SUMMARY | 2024-01-02 18:04 | External Medical Summary ---
Author Name Unknown Address Unknown Organization K0G:LABORATORY [facility] [place] [facility] - [address] [place] [address] Laboratory Report Ordering Provider Test Date Status SULEMA URRUTIA 11/27/2023 11:18:17 Final Observation Date Value Abnormality Reference (Units ) Status Glucose [Moles/volume] in Serum or Plasma --1 hour post 50 g glucose PO 11/27/2023 11:18:17 129 70-129 (mg/dL) Final Performing Location LABORATORY [facility] [place] [facility] - [address] [place] [address]
--- OUTSIDE RECORDS SUMMARY | 2024-01-02 18:04 | External Medical Summary ---
Author Name Unknown Address Unknown Organization : Laboratory Report Ordering Provider Test Date Status SULEMA URRUTIA 10/13/2023 13:48:32 Final Observation Date Value Abnormality Reference (Units ) Status INTERPRETATION 10/13/2023 13:48:32 SEE BELOW Final Screen negative for open NTD . RISK FOR ONTD 10/13/2023 13:48:32 1:369 Final CALC'D GESTATIONAL AGE 1210/13/2023 13:48:32 20.7 Final AFP, SERUM 10/13/2023 13:48:32 117.9 (ng/mL) Final AFP MOM 10/13/2023 13:48:32 2.01 Final Reference Range:
NTD <2 .50
IDD <1.90
TWINS <4.00
TWINS IDD <3.50
TRIPLETS <4.50
The AFP test result indicates that this patient is
screen negative for open NTD. It should be noted
that normal test results can never guarantee the
of a normal baby and that 2-3% of newborns
have some type of physical or mental defect, many
of which are undetectable through any known
diagnostic technique.
This is a screening test, not a diagnostic test.
This risk assessment report is based in part on
demographic data provided by the ordering
physician. Please notify the laboratory promptly
if any data are incorrect. For assistance with
recalculations, please call your local [facility] laboratory. For assistance with
interpretation of these results, please contact
your Local [facility] genetic counselor or
call [phone] ([phone]).
Interpretive Cutoffs
Screen Positive for Open NTD:
> or = 2.50 adjusted MOM
> or = 1.90 adjusted MOM for insulin-dependent diabetics
> or = 4.00 adjusted MOM for twins
> or = 3.50 adjusted MOM for twins insulin-dependent diabetics
> or = 4.50 adjusted MOM for triplets
For additional information, please refer to
[email or web address]
(This link is being provided for
informational/educational purposes only.) DATE OF 10/13/2023 13:48:32 2000 Final COLLECTION DATE 10/13/2023 13:48:32 10/13/2023 Final MATERNAL WEIGHT 10/13/2023 13:48:32 173 (lbs ) Final EST'D DATE OF DELIVERY 10/13/2023 13:48:32 02/25/2024 Final EDGAR DETERMINED BY 10/13/2023 13:48:32 LMP Final MOTHER'S ETHNIC ORIGIN 10/13/2023 13:48:32 WHITE Final NUMBER OF FETUSES 10/13/2023 13:48:32 1 Final INSULIN DEPEND DIABETIC 10/13/2023 13:48:32 NO Final REPEAT SPECIMEN 10/13/2023 13:48:32 NO Final HX OF NEURAL TUBE DEFECTS 10/13/2023 13:48:32 NO Final PREV DOWN SYND 10/13/2023 13:48:32 NO Final DONOR EGG 10/13/2023 13:48:32 NO Final DONOR AGE: EGG RETRIEVAL 10/13/2023 13:48:32 NOT GIVEN Final Test performed by [facility]
[address],
[place] [address]

Spudder: Rina Hamilton MD,PHD,STEPHEN
Test Reported by Raleigh Brooks,
[facility],
[address], [place]
Blaine Douglas M.D., Ph.D., Director of Laboratories
, [place] [id number] Performing Location
--- OUTSIDE RECORDS SUMMARY | 2024-01-02 18:05 | External Medical Summary ---
Author Name Unknown Address Unknown Organization K01:[facility] - [address] [place] [address] Laboratory Report Ordering Provider Test Date Status SHARMIN BALBUENA 07/16/2023 09:50:59 Final Observation Date Value Abnormality Reference (Units ) Status Hep C Ab 07/16/2023 09:50:59 Negative Negative Final Further HCV quantitative adriana ting not performed per protocol. Performing Location [facility] - [address] [place] [address]
--- OUTSIDE RECORDS SUMMARY | 2024-01-02 18:05 | External Medical Summary ---
Author Name Unknown Address Unknown Organization K01:[place] [facility] [place] [facility] [address] [facility] [address] Laboratory Report Ordering Provider Test Date Status SHARMIN BALBUENA 07/16/2023 09:50:59 Final Observation Date Value Abnormality Reference (Units ) Status HIV 1+2 Ab+HIV1 p24 Ag [Presence] in Serum or Plasma by Immunoassay 07/16/2023 09:50:59 Negative Negative Final Negative HIV-1/2 antigen and antibody screening tset results usually indicate the absence of HIV-1 and HIV-2 infection. However, such negative results do not rule-out acute HIV infection. If acute HIV-1 infection is highly suspected, it is recommended that a specimen be submitted for detection of HIV-1 RNA. Performing Location [place] [facility] [place] [facility] [address] [facility] [address]
--- OUTSIDE RECORDS SUMMARY | 2024-01-02 18:05 | External Medical Summary ---
Author Name Unknown Address Unknown Organization K01:[facility]ORY [facility] [place] [address] [place] [address] Laboratory Report Ordering Provider Test Date Status FREIDA BALBUENAOLI 07/16/2023 09:50:59 Final Observation Date Value Abnormality Reference (Units ) Status SYNC LEUKOCYTES IN BLOOD BY AUTOMATED COUNT 07/16/2023 09:50:59 9.46 4.00-10.80 (K/uL) Final Segs 07/16/2023 09:50:59 72.4 40.0-75.0 (%) Final Lymphs % 07/16/2023 09:50:59 22.0 18.0-42.0 (%) Final Monos 07/16/2023 09:50:59 4.5 1.0-11.0 (%) Final Eosinophils 07/16/2023 09:50:59 0.4 0.0-6.0 (%) Final Basos 07/16/2023 09:50:59 0.3 0.0-2.0 (%) Final Immature Granulocyte, Percent 07/16/2023 09:50:59 0.4 0.0-2.0 (%) Final Absolute Segs 07/16/2023 09:50:59 6.84 1.80-7.70 (K/uL) Final Lymphs, absolute 07/16/2023 09:50:59 2.08 1.00-4.80 (K/ul) Final Monos, Abs 07/16/2023 09:50:59 0.43 0.00-1.10 (K/uL) Final Eos, Abs 07/16/2023 09:50:59 0.04 0.00-0.70 (K/uL) Final Basos, Abs 07/16/2023 09:50:59 0.03 0.00-0.20 (K/uL) Final Immature Granulocytes, Number 07/16/2023 09:50:59 0.04 0.00-0.20 (K/uL) Final Performing Location LAB[facility]ATORY [facility] [place] - [address] [facility] [address]
--- OUTSIDE RECORDS SUMMARY | 2024-01-02 18:05 | External Medical Summary | Summary of Care ---
Author Name Unknown Organization [facility] Address [address] [facility] [place] [address] Phone [phone] Care Team Providers Care Mobile Engineer Name Role Phone Unavailable Primary Care Provider Unavailabl e Reason for Visit * Reason Comments New Visit Encounter Details Date Type Department Care Team Description 07/13/2023 Nurse Only Gynecology/Obstetrics [facility] [address] [facility] [place] [address] Gw, Nurse Home Companion [facility] [address] [facility] [place] [address] New Visit Allergies No known active allergiesdocumented as of this encounter (statuses as of 07/13/2023) Medications Medication Sig Dispensed Refills Start Date End Date Status 6.75-0.2 MG Oral Tablet Take by mouth. 0 Active documented as of this encounter (statuses as of 07/13/2023) Social History Tobacco Use Types Packs/Day Years Used Date Smoking Tobacco: Never Smokeless Tobacco: Never Tobacco Cessation:Counseling Given: Not Answered Alcohol Use Standard Drinks/Week Comments Not Currently 0 (1 standard drink = 0.6 oz pur e alcohol) Food Insecurity Answer Date Recorded Within the past 12 months, y ou worried that your food would run out before you got money to buy more. Never true 06/29/2023 Within the past 12 months, t he food you bought just didn't last and you didn't have money to get more. Never true 06/29/2023 Comments Yes Sex Assigned at Date Recorded Female 06/29/2023 10:32 AM EDT documented as of this encounter Last Filed Vital Signs Vital Sign Reading Time Taken Comments Blood Pressure - - Pulse - - Temperature - - Respiratory Rate - - Oxygen Saturation - - Inhaled Oxygen Concentration - - Weight - - Height 175.3 cm (5' 9") 07/13/2023 1:48 PM EDT Body Mass Index - - documented in this encounter Progress Notes * Sosa Wilkins LPN - 07/13/2023 1:48 PM EDT Patient completed telephone nurse intake No transferred records. Are you planning a home delivery?No Pt advised , If at anytime during your you decide to pursue a home , please notify our office. Patient oriented to the Women's Health department and current providers in the practice.We discuss the the options of delivery, [facility] vs [facility] with midwives. Reviewed frequency of visits. Reviewed outreach clinics and how to contact providers during regularoffice hours and after office hours. Education provided [facility] is a way you can talk to your provider online through e-mail. Would you like to sign up, I can activate it for you. ALREADY ACTIVE Patient advised not to use [facility] for urgent related problems. Sosa Wilkins LPN documented in this encounter Plan of Treatment Upcoming Encounters Date Type Specialty Care Team Description 07/16/2023 Imaging Radiology 07/16/2023 Office Visit Gynecology Obstetrics Taylor Carlson CRNP [address] [facility] [place] [address] Health Maintenance Due Date Last Done Comments Hepatitis B (1 of 3 - 3-dose series) 1998 COVID-19 Vaccine (#1) 1998 GARDASIL-HPV IMMUNIZATION SE MUKUND (1 - 2-dose series) 2009 Depression Screening 2010 HIV Screening 2013 Hepatitis C Screening 02/17/2016 DTaP,Tdap,and Td Vaccines (1 - Tdap) 2017 Pap Smear 2019 Influenza Vaccine (FLU shot) (#1) 2023 MENINGOCOCCAL (MENACTRA/MENVEO) Aged Out No longer eligible based on patient's age to complete this topic Pneumococcal Vaccine: Pediat rics (0 to 5 Years) and At-Risk Patients (6 to 64 Years) Aged Out No longer eligible b ased on patient's age to complete this topic documented as of this encounter Medical Devices Not on filedocumented as of this encounter
--- OUTSIDE RECORDS SUMMARY | 2024-01-02 18:05 | External Medical Summary ---
Author Name Unknown Address Unknown Organization K01:[place] [facility] [place] [address] [place] [address] Laboratory Report Ordering Provider Test Date Status SHARMIN BALBUENA 07/16/2023 09:50:59 Final Observation Date Value Abnormality Reference (Units ) Status WBC, Total 07/16/2023 09:50:59 9.46 4.00-10.8 0 (K/uL) Final RBC 07/16/2023 09:50:59 4.51 3.85-5.15 (M/uL) Final Hemoglobin 07/16/2023 09:50:59 14.2 12.0-15.3 (g/dL) Final Anemia reflex testing trigge rs on a HGB < 12.0 for Females and HGB < 13.0 for Males in accordance with the WHO Anemia Guidelines
Anemia reflex testing triggers on a HGB < 12.0 for Females and HGB < 13.0 for Males in accordance with the WHO Anemia Guidelines HCT 07/16/2023 09:50:59 42.0 36.0-45.2 (%) Final MCV 07/16/2023 09:50:59 93.1 81.5-97.5 (fL) Final MCH 07/16/2023 09:50:59 31.5 27.0-34.0 (pg) Final MCHC 07/16/2023 09:50:59 33.8 32.0-36.0 (g/dL) Final RDW 07/16/2023 09:50:59 11.9 11.5-15.5 (%) Final Platelets 07/16/2023 09:50:59 262 140-400 (K /uL) Final MPV 07/16/2023 09:50:59 9.8 6.6-11.1 ( fL) Final Nucleated erythrocytes/100 leukocytes [Ratio] in Blood by Automated count 07/16/2023 09:50:59 0 <=0 (/100 WBCs) Fi nal Performing Location [facility] - [address] [facility] [address]
--- OUTSIDE RECORDS SUMMARY | 2024-01-02 18:05 | External Medical Summary | Summary of Care ---
Author Name Unknown Organization [facility] Address [address] [facility] [place] [address] Phone [phone] Care Team Providers Care Pond Supervisor Name Role Phone Unavailable Primary Care Provider Unavailabl e Reason for Visit * Reason Comments Outpatient Testing Encounter Details Date Type Department Care Team (Late st Contact Info) Description 08/13/2023 10:10 AM EDT Laboratory Laboratory, [facility] [address] [facility] [place] [id number] [facility] [address] [facility] [place] [address] Supervision of normal first , antepartum Allergies No known active allergiesdocumented as of this encounter (statuses as of 08/13/2023) Medications Medication Sig Dispensed Refills Start Date End Date Status 6.75-0.2 MG Oral Tablet Take by mouth. 0 Active documented as of this encounter (statuses as of 08/13/2023) Active Problems Problem Noted Date Diagnosed Date Supervision of normal first , antepartu m 07/16/2023 History of abnormal cervical Pap smear Overview: 2021 abnormal pap and colpo done 10/2022 pap wnl Requesting records Estimated Date of Delivery Comme nts Yes 02/25/2024 Based on last me nstrual period of 05/21/2023 documented as of this encounter (statuses as of 08/13/2023) Social History Tobacco Use Types Packs/Day Years Used Date Smoking Tobacco: Never Smokeless Tobacco: Never Alcohol Use Standard Drinks/Week Comments Not Currently 0 (1 standard drink = 0.6 oz pur e alcohol) Hunger Vital Sign Answer Date Recorded Within the past 12 months, y ou worried that your food would run out before you got the money to buy more. Never true 06/29/20 23 Within the past 12 months, t he food you bought just didn't last and you didn't have money to get more. Never true 06/29/2023 Eden Depression Scale Answer Date Recorded Eden Depression Scale Total 3 07/16/2023 The thought [...] Care Team (Late st Contact Info) Description 09/11/2023 9:00 AM EST Office Visit Gynecology/Obstetrics [facility] [address] [facility] [place] [address] Easton Salgado MD [address] [facility] [place] [address] Pending Results Name Type Priority Associated Diagnoses Date /Time QNATAL ADVANCED (QUEST) Lab Routine Supervision of normal first , antepartum 08/13/2023 10:02 AM EDT Health Maintenance Due Date Last Done Comments Hepatitis B (1 of 3 - 3-dose series) 1998 GARDASIL-HPV IMMUNIZATION SERIES (1 - 2-dose series) 2009 Depression Screening 2010 Pap Smear 2019 DTaP,Tdap,and Td Vaccines (7 - Td or Tdap) 09/14/2019 09/14/2009, 03/25/2002, 09/30/1999, Additional history exists COVID-19 Vaccine ( season) 2023 08/09/2021, 07/12/2021 Influenza Vaccine (FLU shot) (#1) 2023 11/17/2013, 11/04/2012 MENINGOCOCCAL (MENACTRA/MENVEO) Aged Out No longer eligible [...]
--- OUTSIDE RECORDS SUMMARY | 2024-01-02 18:05 | External Medical Summary ---
Author Name Unknown Address Unknown Organization : Laboratory Report Ordering Provider Test Date Status SULEMA URRUTIA 08/13/2023 10:02:09 Final Observation Date Value Abnormality Reference (Units ) Status NUMBER OF FETUSES? 08/13/2023 10:02:09 1 Final ADVANCED MATERNAL AGE? 08/13/2023 10:02:09 NO Final ABNORMAL RAYMOND? 08/13/2023 10:02:09 NO Final ABNORMAL US? 08/13/2023 10:02:09 NOT GIVEN Final PERSONAL/FAM HISTORY? 08/13/2023 10:02:09 NOT GIVEN Final INTERPRETATION 08/13/2023 10:02:09 SEE BELOW Final This specimen showed an expe cted representation of
chromosome 21, 18, and 13 material. Results were
not analyzed or reported for microdeletions. See
'Limitations' below. TRISOMY 21 (T21) 08/13/2023 10:02:09 Negative Final TRISOMY 18 (T18) 08/13/2023 10:02:09 Negative Final TRISOMY 13 (T13) 08/13/2023 10:02:09 Negative Final Y CHROMOSOME 08/13/2023 10:02:09 Detected Final Y CHR. INTERPRETATION 08/13/2023 10:02:09 SEE BELOW Final Consistent with a male fetus . SEX CHROMOSOME 08/13/2023 10:02:09 No aneuploidy Final SEX CHROMOSOME INTERP 08/13/2023 10:02:09 SEE BELOW Final No apparent abnormality was detected. See
'Limitations' below. MICRODELETION 08/13/2023 10:02:09 Opted Out Final MICRODELETION INTERP 08/13/2023 10:02:09 SEE BELOW Final Results were not analyzed or reported for
microdeletions. GESTATIONAL AGE (IN WEEKS) 08/13/2023 10:02:09 12 Final GESTATIONAL AGE (IN DAYS) 08/13/2023 10:02:09 0 Final FRACTION 08/13/2023 10:02:09 13.00% Final LABORATORY COMMENTS 08/13/2023 10:02:09 SEE BELOW Final A portion of the testing was performed at [facility] [place].
Laboratory results and submitted clinical
information reviewed by Daysi Lang, Ph.D., [facility],
[facility]. LIMITATIONS 08/13/2023 10:02:09 SEE BELOW Final QNatal(R) Advanced is a cell -free DNA test that
screens for increased risk of certain
chromosomal abnormalities that may cause
defects, including Trisomy 21 (Down syndrome),
Trisomy 18, Trisomy 13, and certain sex chromosome
abnormalities (i.e., 45,X, 47,XXY, 47,XXX, and
47,XYY), as well as sex. In addition, if
selected as an option, QNatal(R) Advanced can
screen for certain microdeletions (i.e., 22q, 5p,
1p36, 15q, 11q, 8q, and 4p) that may cause
defects. This test does not assess the risk of
abnormalities such as neural tube defects or
ventral wall defects and should not be considered
in isolation from other clinical findings and
laboratory test results.
QNatal(R) Advanced has been validated in thompson
pregnancies for the trisomies and sex chromosome
abnormalities listed above, as well as for
microdeletions, and for the determination of
sex. Sex chromosome aneuploidy analysis is only
performed in thompson pregnancies. The test has
also been validated in twin pregnancies for the
trisomies listed above and for microdeletions, but
not for the sex chromosome abnormalities due to
limited data. The test has not been validated in
higher order pregnancies (more than two) because
limited data is available.
Microdeletion screening is limited to the
specified microdeletion regions (see
'Methodology'). The Y chromosome is analyzed for
the determination of sex. The sensitivity
and specificity of sex determination
analysis may be less than that of the Trisomy 21,
18, and 13 analysis and this determination can be
confounded by vanishing twin syndrome in
pregnancies that were originally multiple
gestation pregnancies. It should be noted that
QNatal(R) Advanced is a quantitative analysis of
maternal and placental cfDNA. As a result, the
accuracy of the screening test results may be
affected by the presence of chromosome
abnormalities or microdeletions that are maternal
or confined placental in origin. False positive
findings involving the examined chromosomes and
microdeletion regions may be due to maternal,
placental, or mosaicism, by vanishing twin
syndrome, or other unexplained causes. SPECIFICATIONS 08/13/2023 10:02:09 SEE BELOW Final Sensitivity Specificity
T21 >99.9% >99.9%
T18 >99.9% >99.9%
T13 >99.9% >99.9%
Accuracy
Y >99.9%
Performance of the QNatal Advanced
laboratory-developed test (LDT) has been
determined based on internal analytical
assessment. METHODOLOGY 08/13/2023 10:02:09 SEE BELOW Final Circulating cell-free (cf) D NA was isolated from
plasma followed by detection on a massively
parallel sequencing platform. Bioinformatic
analysis was performed to determine the
representation of chromosomes 21, 18, 13, X and Y
in circulating cell-free DNA. The representation
of sequences from the critical regions involved in
1p36 microdeletion syndrome (1p36),
Gonzales-Hirschhorn syndrome (4p), Cri-du-chat
syndrome (5p), Low-Giedion syndrome (8p),
Ap syndrome (11q), Prader Willi
syndrome/Angelman syndrome (15q), and DiGeorge
syndrome (22q) is evaluated for the detection of
microdeletions if requested. This test was
developed, and its performance characteristics
have been determined by [facility]. It has not been
cleared or approved by the U.S. Food and Drug
Administration. Performance characteristics refer
to the analytical performance of the test. This
test is performed pursuant to a license agreement
with [employer].
This test was developed and its analytical
performance characteristics have been determined
by [facility]. It has not been cleared or
approved by FDA. This assay has been validated
pursuant to the CLIA regulations and is used for
clinical purposes.
Test performed by [facility]
[address],
[place] [address]

Automotive Light Mechanic: Rina Hamilton MD,PHD,STEPHEN
Test Reported by [facility],
[facility],
[address] [place], [place]
Blaine Douglas M.D., Ph.D., Director of Laboratories
, CLIA [id number] Performing Location
--- OUTSIDE RECORDS SUMMARY | 2024-01-02 18:05 | External Medical Summary ---
Author Name Unknown Address Unknown Organization K01:LABORATORY [facility] [place] - [address] [place] [address] Laboratory Report Ordering Provider Test Date Status SHRAMIN BALBUENA 07/16/2023 09:50:59 Final Observation Date Value Abnormality Reference (Units ) Status Hep B surface Ag 07/16/2023 09:50:59 Negative Neg ative Final Performing Location [facility] - [address] [place] [address]
--- OUTSIDE RECORDS SUMMARY | 2024-01-02 18:05 | External Medical Summary | Summary of Care ---
Author Name Unknown Organization [facility] Address [address] [facility] [place] [address] Phone [phone] Care Team Providers Care Cattle Trader Name Role Phone Unavailable Primary Care Provider Unavailabl e Reason for Visit * Reason Comments Outpatient Testing Encounter Details Date Type Department Care Team Description 07/16/2023 Laboratory Laboratory, [facility] [address] [facility] [place] [id number] [facility] [address] [facility] [place] [address] Encounter for supervision of normal first in first trimester Allergies No known active allergiesdocumented as of this encounter (statuses as of 07/16/2023) Medications Medication Sig Dispensed Refills Start Date End Date Status 6.75-0.2 MG Oral Tablet Take by mouth. 0 Active documented as of this encounter (statuses as of 07/16/2023) Active Problems Problem Noted Date Supervision of normal first , a ntepartum 07/16/2023 History of abnormal cervical Pap smear 0 07/16/2023 Overview: 2021 abnormal pap and colpo done 10/2022 pap wnl Requesting records Estimated Date of Delivery Comme nts Yes 02/25/2024 Based on last me nstrual period of 05/21/2023 documented as of this encounter (statuses as of 07/16/2023) Social History Tobacco Use Types Packs/Day Years [...] money to get more. Never true 06/29/2023 Estimated Date of Delivery Comme nts Yes 02/25/2024 Based on last me nstrual period of 05/21/2023 Sex Assigned at Date Recorded Female 06/29/2023 10:32 AM EDT Job Start Date Occupation Industry Not on file Not on file Not on file documented as of this encounter Plan of Treatment Upcoming Encounters Date Type Specialty Care Team Description 08/13/2023 Office Visit Gynecology Obstetrics Jaqueline Horton CRNP [address] [place] [address] 09/11/2023 Office Visit Gynecology Obstetrics Easton Salgado MD [address] [place] [address] Pending Results Name Type Priority Associated Diagnoses Date /Time RUBELLA IGG ANTIBODY Lab Routine Encounter for supervision of normal first in first trimester 07/16/2023 9:50 AM EDT HEPATITIS B SURFACE ANTIGEN Lab Routine Encounter for supervision of normal first in first trimester 07/16/2023 9:50 AM EDT CBC WITH WBC DIFFERENTIAL AND ANEMIA REFLEX WORKUP Lab Routine Encounter for supervision of normal first in first trimester 07/16/2023 9:50 AM EDT HEPATITIS C ANTIBODY SCREEN WITH PROGRESSION TO HEPATITIS C RNA QUANTITATIVE Lab Routine Encounter for supervision of normal first in first trimester 07/16/2023 9:50 AM EDT TYPE AND SCREEN Lab Routine Encounter for supervision of normal first in first trimester 07/16/2023 9:50 AM EDT SYPHILIS ANTIBODY SCREEN WITH REFLEX TO RPR Lab Routine Encounter for supervision of normal first in first trimester 07/16/2023 9:50 AM EDT HIV ANTIGEN & ANTIBODY SCREEN W/ CONFIRMATION Lab Routine Encounter for supervision of normal first in first trimester 07/16/2023 9:50 AM EDT ANEMIA CBC Lab Routine Encounter for supervision of normal first in first trimester 07/16/2023 9:50 AM EDT DIFFERENTIAL, AUTOMATED Lab Routine Encounter for supervision of normal first in first trimester 07/16/2023 9:50 AM EDT ANEMIA REFLEX CHEMISTRY HOLD Lab Routine Encounter for supervision of normal first in first trimester 07/16/2023 9:50 AM EDT HEPATITIS C ANTIBODY Lab Routine Encounter for supervision of normal first in first trimester 07/16/2023 9:50 AM EDT HEPATITIS C RNA ADD ON Lab Routine Encounter for supervision of normal first in first trimester 07/16/2023 9:50 AM EDT SYPHILIS ANTIBODY SCREEN Lab Routine Encounter for supervision of normal first in first trimester 07/16/2023 9:50 AM EDT Health Maintenance Due Date Last Done Comments Hepatitis B (1 of 3 - 3-dose series) 1998 GARDASIL-HPV IMMUNIZATION SERIES (1 - 2-dose series) 2009 Depression Screening 2010 HIV Screening 2013 Hepatitis C Screening 02/17/2016 Pap Smear 2019 DTaP,Tdap,and Td Vaccines (7 - Td or Tdap) 09/14/2019 09/14/2009, 03/25/2002, 09/30/1999, Additional history exists COVID-19 Vaccine (3 - Moderna series) 10/04/2021 08/09/2021, 07/12/2021 Influenza Vaccine (FLU shot) (#1) [...] as of this encounter Visit Diagnoses Diagnosis Encounter for supervision of normal first in first trimester Supervision of normal first documented in this encounter
--- OUTSIDE RECORDS SUMMARY | 2024-01-02 18:05 | External Medical Summary | Summary of Care ---
Author Name Unknown Organization [facility] Address [address] [facility] [place] [address] Phone [phone] Care Team Providers Care Publication Designer Name Role Phone Unavailable Primary Care Provider Unavailabl e Reason for Visit * Reason Comments New Visit Encounter Details Date Type Department Care Team Description 07/16/2023 Office Visit Gynecology/Obstetrics [facility] [address] [place] [address] Taylor Carlson CRNP [address] [place] [address] Encounter for supervision of normal first in first trimester* Allergies No known active allergiesdocumented as of [...] Sign Reading Time Taken Comments Blood Pressure 110/72 07/16/2023 9:09 AM EDT Pulse - - Temperature - - Respiratory Rate - - Oxygen Saturation - - Inhaled Oxygen Concentration - - Weight 73.1 kg (161 lb 3.2 oz) 07/16/2023 9:09 A M EDT Height 175.3 cm (5' 9") 07/16/2023 9:09 AM EDT Body Mass Index 23.81 07/16/2023 9:09 AM EDT documented in this encounter Progress Notes * JOJO Thrasher - 07/16/2023 9:34 AM EDT HPI: Monica Ventura is a 23 year old year old female here for NOB visit. 8w0d . EDC 02/25/24. Early dating u/s confirming single viable IUP. Reviewed PMH, PSH, social hx, and family hx with pt and FOB. Discussed genetic screening tests with pt. She is interested in Qnatal symptoms: mild nausea, +breast tenderness, novaginal bleeding since LMP. She is taking PNV. No past medical history on file. No past surgical history on file. Current outpatient prescriptions Current Outpatient Medications Medication Sig Dispense Refill 6.75-0.2 MG Oral Tablet Take by mouth. No current facility-administered medications for this visit. Review of patient's allergies indicates: No Known Allergies Social History Social History Socioeconomic History Marital status: Unknown Spouse name: Not on file Number of children: Not on file Years of education: Not on file Highest education level: Not on file Occupational History Not on file Tobacco Use Smoking status: Never Smokeless tobacco: Never Substance and Sexual Activity Alcohol use: Not Currently Drug use: Not Currently Sexual activity: Yes Partners: Male Other Topics Concern Not on file Social History Narrative Not on file Social Determinants of Health Financial Resource Strain: Not on file Food Insecurity: No Food Insecurity Worried About Running Out of Food in the Last Year: Never true Ran Out of Food in the Last Year: Never true Transportation Needs: Not on file Physical Activity: Not on file Stress: Not on file Social Connections: Not on file Intimate Partner Violence: Not on file Housing Stability: Not on file Family History Family History Problem Relation Age of Onset No Known Problems Mother No Known Problems Father Obstetric History OB History Para Term AB Living 1 SAB IAB Ectopic Multiple Live Births # Outcome Date GA Lbr Riki/2nd Weight Sex Delivery Anes PTL Lv 1 Current PHYSICAL EXAM: See physical IMPRESSION: Encounter for supervision of normal first in first trimester (Primary) - CULTURE, URINE, QUANTITATIVE; Future; Expected date: 07/16/2023 - RUBELLA IGG ANTIBODY; Future; Expected date: 07/16/2023 - HEPATITIS B SURFACE ANTIGEN; Future; Expected date: 07/16/2023 - CBC WITH WBC DIFFERENTIAL AND ANEMIA REFLEX WORKUP; Future; Expected date: 07/16/2023 - HEPATITIS C ANTIBODY SCREEN WITH PROGRESSION TO HEPATITIS C RNA QUANTITATIVE; Future; Expected date: 07/16/2023 - TYPE AND SCREEN; Future; Expected date: 07/16/2023 - SYPHILIS ANTIBODY SCREEN WITH REFLEX TO RPR; Future; Expected date: 07/16/2023 - HIV ANTIGEN & ANTIBODY SCREEN W/ CONFIRMATION; Future; Expected date: 07/16/2023 - CHLAMYDIA TRACHOMATIS AND NEISSERIA GONORRHOEAE, AMPLIFIED PROBE; Future; Expected date: 07/16/2023 - URINALYSIS, POINT OF CARE (ENTER/EDIT) Follow Up: Return in about 4 weeks (around 08/13/2023) for conner. | For: conner | Check-out note: Sign release of record to obtain pap smear results Lab today JOJO Thrasher documented in this encounter Nursing Notes * Elana Valente RN - 07/16/2023 9:10 AM EDT Patient here for NOB visit US today showing 8w0d HR 167 EDGAR 02/25/2024 Denies N/V Denies pain or bleeding Labs pended Book given documented in this encounter Plan of Treatment Upcoming Encounters Date Type Specialty Care Team Description 08/13/2023 Office Visit Gynecology Obstetrics Jaqueline Horton CRNP [address] [place] [address] 09/11/2023 Office Visit Gynecology Obstetrics Easton Salgado MD [address] [place] [address] Pending Results Name Type Priority Associated Diagnoses Date /Time CULTURE, URINE, QUANTITATIVE Lab Routine Encounter for supervision of normal first in first trimester 07/16/2023 10:02 AM EDT RUBELLA IGG ANTIBODY Lab Routine Encounter for [...] in first trimester 07/16/2023 9:50 AM EDT CHLAMYDIA TRACHOMATIS AND NEISSERIA GONORRHOEAE, AMPLIFIED PROBE Lab Routine Encounter for supervision of normal first in first trimester 07/16/2023 10:02 AM EDT Scheduled Orders Name Type Priority Associated Diagnoses Orde r Schedule CULTURE, URINE, QUANTITATIVE Lab Routine Encounter for supervision of normal first in first trimester Expected: 07/16/2023, Expires: 07/16/2024 RUBELLA IGG ANTIBODY Lab Routine Encounter for supervision of normal first in first trimester Expected: 07/16/2023, Expires: 07/16/2024 HEPATITIS B SURFACE ANTIGEN Lab Routine Encounter for supervision of normal first in first trimester Expected: 07/16/2023, Expires: 07/16/2024 CBC WITH WBC DIFFERENTIAL AND ANEMIA REFLEX WORKUP Lab Routine Encounter for supervision of normal first in first trimester Expected: 07/16/2023, Expires: 07/16/2024 HEPATITIS C ANTIBODY SCREEN WITH PROGRESSION TO HEPATITIS C RNA QUANTITATIVE Lab Routine Encounter for supervision of normal first in first trimester Expected: 07/16/2023, Expires: 07/16/2024 TYPE AND SCREEN Lab Routine Encounter for supervision of normal first in first trimester Expected: 07/16/2023, Expires: 08/15/2024 SYPHILIS ANTIBODY SCREEN WITH REFLEX TO RPR Lab Routine Encounter for supervision of normal first in first trimester Expected: 07/16/2023, Expires: 07/16/2024 HIV ANTIGEN & ANTIBODY SCREEN W/ CONFIRMATION Lab Routine Encounter for supervision of normal first in first trimester Expected: 07/16/2023, Expires: 07/16/2024 CHLAMYDIA TRACHOMATIS AND NEISSERIA GONORRHOEAE, AMPLIFIED PROBE Lab Routine Encounter for supervision of normal first in first trimester Expected: 07/16/2023, Expires: 07/16/2024 Health Maintenance Due Date Last Done Comments [...] Not on filedocumented as of this encounter Procedures Procedure Name Priority Date/Time Associated Diagnosis Comments URINALYSIS, POINT OF CARE (ENTER/EDIT) Routine 07/16/2023 Encounter for supervision of normal first in first trimester documented in this encounter Results * URINALYSIS, POINT OF CARE (ENTER/EDIT) (07/16/2023) Color, Urine Yellow Yellow or Light Yellow Clarity, Urine Clear Clear Glucose, Urine Negative Negative mg/dL Bilirubin, Urine Negative Negative Ketone, Urine Negative Negative mg/dL Specific [place], Urine 1.020 1.003 - 1.030 Blood, Urine Trace-intact Negative pH, Urine 8.5 5.0 - 7.5 units Protein, Urine Negative Negative mg/dL Urobilinogen, Urine 0.2 0.2 - 1.0 mg/dL Nitrite, Urine Negative Negative Esterase, Urine Negative Negative Urine 07/16/2023 Taylor URIBE LAB POINT OF CARE TE ST ENTER/EDIT ORDERABLES documented in this encounter Visit Diagnoses Diagnosis Encounter for supervision of normal first in first trimester- Primary Supervision of normal first documented in this encounter
--- OUTSIDE RECORDS SUMMARY | 2024-01-02 18:05 | External Medical Summary ---
Author Name Unknown Address Unknown Organization [id number]:LAB[facility]ATORY [facility] [place] [facility] [place] [address] Laboratory Report Ordering Provider Test Date Status FREIDA BALBUENAOLI 07/16/2023 10:02:56 Final Observation Date Value Abnormality Reference (Units ) Status Chlamydia trachomatis rRNA [Presence] in Specimen by EVELINE with probe detection 07/16/2023 10:02:56 Negative Negative Final No Chlamydia trachomatis det ected by sterile process coordinator-mediated nucleic acid amplification. Neisseria gonorrhoeae rRNA [ Presence] in Specimen by EVELINE with probe detection 07/16/2023 10:02:56 Negative Negative Final No Neisseria gonorrhoeae det ected by sterile process coordinator-mediated nucleic acid amplification. Performing Location LABORATORY [facility] [place] [address] [place] [address]
--- OUTSIDE RECORDS SUMMARY | 2024-01-02 18:05 | External Medical Summary ---
Author Name Unknown Address Unknown Organization [id number]:[facility]ORY [facility] [place] [address] [place] [address] Laboratory Report Ordering Provider Test Date Status SHARMIN BALBUENA 07/16/2023 09:50:59 Final Observation Date Value Abnormality Reference (Units ) Status Treponema pallidum Ab [Presence] in Serum by Immunoassay 07/16/2023 09:50:59 Nonreactive Nonreactive Final No serologic evidence of syp hilis. No additional testing clinicially indicated at this time. Consider repeat testing in 2-4 weeks if acute or primary syphilis is suspected. Performing Location LAB[facility]ORY [facility] [place] - [address] [place] [address]
--- OUTSIDE RECORDS SUMMARY | 2024-01-02 18:05 | External Medical Summary | Summary of Care ---
Author Name Unknown Organization [facility] Address [address] [facility] [place] [address] Phone [phone] Care Team Providers Care Manager Speech Name Role Phone Unavailable Primary Care Provider Unavailabl e Reason for Visit * Reason Comments New Visit Encounter Details Date Type Department Care Team Description 07/16/2023 Office Visit Gynecology/Obstetrics [facility] [address] [place] [address] Taylor Carlson CRNP [address] [place] [address] Encounter for supervision of normal first in [...] Obstetrics Jaqueline Horton CRNP [address] [place] [address] 09/11/2023 Office Visit Gynecology Obstetrics Easton Salgado MD [address] [place] [address] Scheduled Orders Name Type Priority Associated Diagnoses [...] in first trimester Expected: 07/16/2023, Expires: 07/16/2024 URINALYSIS, POINT OF CARE (ENTER/EDIT) Point of Care Testing Routine Encounter for supervision of normal first in first trimester Ordered: 07/16/2023 Health Maintenance Due Date Last Done Comments [...]
--- OUTSIDE RECORDS SUMMARY | 2024-01-02 18:05 | External Medical Summary | Summary of Care ---
Author Name Unknown Organization [facility] Address [address] [facility] [place] [address] Phone [phone] Care Team Providers Care Admitting Interviewer Name Role Phone Unavailable Primary Care Provider Unavailabl e Reason for Visit * Reason Comments New Visit Encounter Details Date Type Department Care Team Description 07/16/2023 Office Visit Gynecology/Obstetrics [facility] [address] [place] [address] Taylor Carlson CRNP [address] [place] [address] Encounter for supervision of normal first in [...] Obstetrics Jaqueline Horton CRNP [address] [place] [address] 09/11/2023 Office Visit Gynecology Obstetrics Easton Salgado MD [address] [place] [address] Pending Results Name Type Priority Associated Diagnoses [...]
--- OUTSIDE RECORDS SUMMARY | 2024-01-02 18:05 | External Medical Summary | Summary of Care ---
Author Name Unknown Organization [facility] Address [address] [facility] [place] [address] Phone [phone] Care Team Providers Care Fashion Show Director Name Role Phone Unavailable Primary Care Provider Unavailabl e Reason for Visit * Reason Comments Return Visit Encounter Details Date Type Department Care Team (Late st Contact Info) Description 09/11/2023 9:00 AM EST Office Visit Gynecology/Obstetric [facility] [address] [place] [address] Easton Salgado MD [address] [place] [address] Supervision of normal first , antepartum* Allergies No known active allergiesdocumented as of this encounter (statuses as of 09/11/2023) Medications Medication Sig Dispensed Refills Start Date End Date Status 6.75-0.2 MG Oral Tablet Take by mouth. 0 Active documented as of this encounter (statuses as of 09/11/2023) Active Problems Problem Noted Date Diagnosed Date Supervision of normal first , antepartu m 07/16/2023 History of abnormal cervical Pap smear Overview: 2021 abnormal pap and colpo done 10/2022 pap wnl Requesting records Estimated Date of Delivery Comme nts Yes 02/25/2024 Based on last me nstrual period of 05/21/2023 documented as of this encounter (statuses as of 09/11/2023) Social History Tobacco Use Types Packs/Day Years [...] money to get more. Never true 06/29/2023 [place] Depression Scale Answer Date Recorded [place] Depression Scale Total 3 07/16/2023 The thought [...] Sign Reading Time Taken Comments Blood Pressure 98/56 09/11/2023 8:56 AM EST Pulse - - Temperature - - Respiratory Rate - - Oxygen Saturation - - Inhaled Oxygen Concentration - - Weight 75.8 kg (167 lb) 09/11/2023 8:56 AM EST Height 175.3 cm (5' 9") 09/11/2023 8:56 AM EST Body Mass Index 24.66 09/11/2023 8:56 AM EST documented in this encounter Progress Notes * Easton Salgado MD - 09/11/2023 9:05 AM EST Pt doing well FHR; 150's Madhu for MFM sono documented in this encounter Nursing Notes * Goldie Hernandez LPN - 09/11/2023 9:01 AM EST 16w1d Denies concerns. documented in this encounter Plan of Treatment Upcoming Encounters Date Type Department Care Team (Late st Contact Info) Description 10/13/2023 12:30 PM EST Imaging Radiology [facility] [address] [place], [place] [address] 10/13/2023 1:45 PM EST Office Visit Gynecology/Obstetrics [facility] [address] [place] [address] Jaqueline Horton CRNP [address] [place] [address] 11/13/2023 8:45 AM EST Office Visit Gynecology/Obstetrics [facility] [address] [place] [address] Jaqueline Horton CRNP [address] [place] [address] 12/11/2023 8:45 AM EST Office Visit Gynecology/Obstetrics [facility] [address] [place] [address] Taylor Carlson CRNP [address] [place], [place] [address] Scheduled Orders Name Type Priority Associated Diagnoses Orde r Schedule US PREG SINGLE/1ST GEST, 14 WEEKS OR LATER Medical Imaging Routine Supervision of normal first , antepartum Expected: 10/11/2023 (Approximate), Expires: 10/11/2024 Health Maintenance Due Date Last Done Comments [...]
--- OUTSIDE RECORDS SUMMARY | 2024-01-02 18:05 | External Medical Summary ---
Author Name Unknown Address Unknown Organization K01:LAB[facility]ATORY [facility] - [address] [place] [address] Laboratory Report Ordering Provider Test Date Status SHARMIN BALBUENA 07/16/2023 09:50:59 Final Observation Date Value Abnormality Reference (Units ) Status Rubella virus IgG Ab [Presence] in Serum 07/16/2023 09:50:59 Positive Abnormal Negative Final A positive result is consist ent with having had rubella virus or vaccination. Performing Location LABORATORY [facility] - [address] [place] [address]
--- OUTSIDE RECORDS SUMMARY | 2024-01-02 18:05 | External Medical Summary ---
Author Name Unknown Address Unknown Organization [id number]:LABORATORY [facility] [place] [facility] - [address] [place] [address] Laboratory Report Ordering Provider Test Date Status SHARMIN BALBUENA 07/16/2023 09:50:59 Final Observation Date Value Abnormality Reference (Units ) Status ABO 07/16/2023 09:50:59 A Final RH 07/16/2023 09:50:59 Positive Final RED BLOOD CELL ANTIBODY SCREEN 07/16/2023 09:50:59 Negative Final SPECIMEN EXPIRATION DATE 07/16/2023 09:50:59 07/19/2023 23:59 Final Performing Location LABORATORY [facility] [place] [facility] - [address] [place] [address]
--- OUTSIDE RECORDS SUMMARY | 2024-01-02 18:05 | External Medical Summary ---
Author Name Unknown Address Unknown Organization [id number]:LABORATORY [facility] [place] - [address] [place] [id number] Laboratory Report Ordering Provider Test Date Status ESHASHARMIN 07/16/2023 10:02:56 Final Observation Date Value Abnormality Reference (Units) Status Bacteria identified in Specimen by Culture 07/16/2023 10:02:56 No significant growth Final Test: Culture, Urine, Quant itative
Specimen Source: Urine, Clean Catch
Specimen Type: Urine
Specimen Date: 07/16/2023 10:02 AM
Result Date: 07/17/2023 11:48 AM
Result Status: Final result
Resulting Lab: LABORATORY [facility]
[address]
[place] [address]

CULTURE

No significant growth

null Performing Location LABORATORY [facility] [place] - [address] [facility] [address]
--- OUTSIDE RECORDS SUMMARY | 2024-01-02 18:05 | External Medical Summary | Summary of Care ---
Author Name Unknown Organization [facility] Address [address] [facility] [place] [address] Phone [phone] Care Team Providers Care Sewer Pipe Press Operator Name Role Phone Unavailable Primary Care Provider Unavailabl e Reason for Visit * Reason Comments Return Visit Encounter Details Date Type Department Care Team (Late st Contact Info) Description 08/13/2023 9:15 AM EDT Office Visit Gynecology/Obstetric s Kelsie Kline [address] [place] [id number] BackJaqueline gtz CRNP [address] [place] [id number] Supervision of normal first , antepartum*; Unable to hear heart tones as reason for ultrasound scan Allergies No known active allergiesdocumented as of [...] money to get more. Never true 06/29/2023 Letcher Depression Scale Answer Date Recorded Letcher Depression Scale Total 3 07/16/2023 The thought [...] Sign Reading Time Taken Comments Blood Pressure 106/66 08/13/2023 9:00 AM EDT Pulse - - Temperature - - Respiratory Rate - - Oxygen Saturation - - Inhaled Oxygen Concentration - - Weight 74.3 kg (163 lb 12.8 oz) 08/13/2023 9:00 AM EDT Height - - Body Mass Index 24.19 07/16/2023 9:09 AM EDT documented in this encounter Progress Notes * Lucy Claros LPN - 08/13/2023 9:00 AM EDT 12w0d Denies vaginal bleeding/rom Absent movement No new concerns Declines flu Interested in qnatal * JOJO Wright - 08/13/2023 9:00 AM EDT 12w0d Doing well, minimal nausea, eating helps. Denies bleeding/cramping. Desires Qnatal, ordered; discussed turn around time. Recommend flu vaccination due to higher risk of flu complications in - pt declines. Unable to hear heart tones on doppler, U/S confirms cardiac activity. 4 week return JOJO Zimmerman documented in this encounter Plan of Treatment Upcoming Encounters Date Type Department Care Team (Late st Contact Info) Description 09/11/2023 9:00 AM EST Office Visit Gynecology/Obstetrics Kelsie Kline [address] [place] [address] Easton Salgado MD [address] [place] [phone] Scheduled Orders Name Type Priority Associated Diagnoses Orde r Schedule QNATAL ADVANCED ([facility]) Lab Routine Supervision of normal first , antepartum Expected: 08/13/2023 (Approximate), Expires: 08/13/2024 Health Maintenance Due Date Last Done Comments Hepatitis B (1 of 3 - 3-dose series) 1998 GARDASIL-HPV IMMUNIZATION SERIES (1 - 2-dose series) 2009 Depression Screening 2010 Pap Smear 2019 DTaP,Tdap,and Td Vaccines (7 - Td or Tdap) 09/14/2019 09/14/2009, 03/25/2002, 09/30/1999, Additional history exists COVID-19 Vaccine (3 - 2022- season) 2023 08/09/2021, 07/12/2021 Influenza [...] Not on filedocumented as of this encounter Results * US PREG LIMITED 1 OR MORE FETUSES (08/13/2023 9:36 AM EDT) Anatomical Region Laterality Modality Pelvis, Body Ultrasound 08/13/2023 9:48 AM EDT Impressions 08/13/2023 9:46 AM EDT IMPRESSION Normal heart rate. Narrative 08/13/2023 9:46 AM EDT EXAM US PREG LIMITED 1 OR MORE FETUSES - 08/13/2023 9:36 am HISTORY heart beat COMPARISON 07/08/2023 TECHNIQUE Sonographic examination performed. FINDINGS : Morse Presentation: Variable heart rate: 159 bpm Procedure Note Heladio Dickerson MD - 08/13/2023 EXAM US PREG LIMITED 1 OR MORE FETUSES - 08/13/2023 9:36 am HISTORY heart beat COMPARISON 07/08/2023 TECHNIQUE Sonographic examination performed. FINDINGS : Morse Presentation: Variable heart rate: 159 bpm IMPRESSION IMPRESSION Normal heart rate. Jaqueline Julianer JOJO RAD ULTRASO UND documented in this encounter Visit Diagnoses Diagnosis Supervision of normal first , antepartum- Primary Unable to hear heart tones as reason for ultrasound scan Abnormality in heart rate/rhythm, antepartum condition or complication Supervision of normal first , antepartum Unable to hear heart tones as reason for ultrasound scan Abnormality in heart rate/rhythm, antepartum condition or complication documented in this encounter
--- NOTE | 2024-01-02 18:30 | Labor Progress Brief Note ---
Date of Service January 02, 2024 Assessment & Plan Admission and Anticipated Discharge Date Admission Date: January 02, 2024 Physical Exam Genitourinary: Manual OB Exam: + cervical dilation 1 cm, + cervical effacement 80% and + station -2 Will give Cytotec 25 mcg orally Results & Data Vital Signs (Past 12 Hours) Vital Signs Temp Pulse Pulse Resp BP BP 01/02/24 17:13 36.7 C 01/02/24 17:12 67 117/72 01/02/24 13:38 37.2 C 16 01/02/24 13:00 72 111/66
[2024-01-02] MEDS: LACTATED RINGER'S 1,000 ML IV PRN (19:57)
[2024-01-02] MEDS: BUTORPHANOL TARTRATE 2 MG/ML VIAL ONE (19:57)
--- NOTE | 2024-01-02 19:57 | Labor Progress Brief Note ---
Date of Service January 02, 2024 Assessment & Plan Admission and Anticipated Discharge Date Admission Date: January 02, 2024 Physical Exam Genitourinary: Manual OB Exam: + cervical dilation 1 cm and 2 cm, + cervical effacement 80% and + station -2 getting more painful. Stadol 1 mg for pain prn Results & Data Vital Signs (Past 12 Hours) Vital Signs Temp Pulse Pulse Resp BP BP 01/02/24 19:11 71 125/75 01/02/24 17:13 36.7 C 01/02/24 17:12 67 117/72 01/02/24 13:38 37.2 C 16 01/02/24 13:00 72 111/66
[2024-01-02] MEDS: BUTORPHANOL TARTRATE 2 MG/ML VIAL IV PRN (21:02)
--- NOTE | 2024-01-02 22:37 | Anesthesiology Consultation ---
Date of Service January 02, 2024 Assessment & Plan (1) Encounter for pre-operative examination: Chart Review Chart Review: Patient NOT seen in Pre Admission Testing and Acceptable Risk for Labor Epidural Consults Requested none History Height/Weight Height: 5 ft 9 in Weight: 87.543 kg Allergies Allergy/AdvReac Type Severity Reaction Status Date / Time No Known Allergies Allergy Verified 01/02/24 13:18 Medications Active Medications Generic Name Dose Route Start Last Admin Trade Name Freq PRN Reason Stop Dose Admin Butorphanol Tartrate 1 mg 01/02/24 19:55 01/02/24 22:12 Butorphanol Tartrate 2 Mg/Ml Vial IV 02/01/24 19:54 1 mg Q1HWA PRN Administration Pain Lactated Ringer's 1,000 mls @ 125 mls/hr 01/02/24 12:51 01/02/24 22:36 Lr IV 01/04/24 12:50 125 mls/hr .Q8H PRN Administration L&D Protocol Protocol Social History Smoking Status: Unknown if ever smoked Hx Alcohol Use: No Hx Substance Use: No Physical Exam Vital Signs Last Vital Signs Temp 98.1 F 01/02/24 17:13 Pulse 68 01/02/24 22:35 Resp 16 01/02/24 13:38 BP 125/75 01/02/24 19:11 Pulse Ox 99 01/02/24 22:35 Testing Laboratory Results 01/02/24 13:08 01/02/24 13:08
[2024-01-02] MEDS ORDERED: ROPIVACAINE 0.5% PF 5 MG/ML 20 ML VIAL EPI PRN (22:40)
[2024-01-02] MEDS ORDERED: BUPIVACAINE 0.25% PF 30 ML VIAL EPI PRN (22:40)
[2024-01-02] MEDS ORDERED: NALBUPHINE HCL 5 MG in SYRINGE 0 ML IV PRN (22:40)
[2024-01-02] MEDS ORDERED: NALOXONE HCL 1 MG in SODIUM CHLORIDE 0.9% 1,000 ML IV PRN (22:40)
[2024-01-02] MEDS ORDERED: ePHEDrine sulfate 50 MG/ML AMP IV PRN (22:40)
[2024-01-02] MEDS ORDERED: NALOXONE HCL 0.4 MG/1 ML VIAL/CARP IV PRN (22:40)
[2024-01-02] MEDS ORDERED: diphenhydrAMINE 50 MG/ML VIAL IV PRN (22:40)
[2024-01-02] MEDS ORDERED: SODIUM CHLORIDE 0.9% PF INJ 10 ML VIAL EPI PRN (22:40)
[2024-01-02] MEDS ORDERED: fentaNYL citrate PF 100 MCG/2 ML VIAL EPI PRN (22:40)
[2024-01-02] MEDS ORDERED: LIDOCAINE 2% MPF LOCAL 5 ML VIAL EPI PRN (22:40)
[2024-01-02] MEDS: LIDOCAINE 2%/EPINEPHRINE 1:200,000 20 ML PF ONE (22:54)
[2024-01-02] MEDS: BUPIVACAINE 0.25% PF 30 ML VIAL ONE (22:54)
[2024-01-02] MEDS: fentANYL 2 MCG/ML BUPIVacaine 0.125%-NSS 100ML BAG EPI PRN (22:56)
[2024-01-02] MEDS: SODIUM CHLORIDE 0.9% PF INJ 10 ML VIAL ONE (22:58)
[2024-01-02] MEDS: fentaNYL citrate PF 100 MCG/2 ML VIAL ONE (22:58)
[2024-01-02] MEDS: fentANYL 2 MCG/ML BUPIVacaine 0.125%-NSS 100ML BAG ONE (22:59)
[2024-01-02] MEDS: LIDOCAINE 2%/EPINEPHRINE 1:200,000 20 ML PF EPI STA (22:59)
[2024-01-02] MEDS: BUPIVACAINE 0.25% PF 30 ML VIAL EPI STA (22:59)
[2024-01-02] MEDS: fentaNYL citrate PF 100 MCG/2 ML VIAL EPI STA (22:59)
[2024-01-02] MEDS: SODIUM CHLORIDE 0.9% PF INJ 10 ML VIAL EPI STA (23:00)
[2024-01-02] MEDS: miSOPROStoL 25 MCG TAB PO ONE (23:22)
[2024-01-03] MEDS ORDERED: NURSING L&D Epidural Breakthrough Pain Update ONE (00:07)
--- NOTE | 2024-01-03 03:09 | Labor Progress Brief Note ---
Date of Service January 03, 2024 Assessment & Plan Admission and Anticipated Discharge Date Admission Date: January 02, 2024 Physical Exam Genitourinary: Manual OB Exam: + cervical dilation 10 cm, + cervical effacement 100%, + station + 3 and + amniotic fluid (AROM with Amni-hook with thick meconium fluid noted) meconium Results & Data Vital Signs (Past 12 Hours) Vital Signs Temp Pulse Resp BP Pulse Ox 01/03/24 03:05 70 99 01/03/24 03:03 64 109/71 01/03/24 03:00 64 97 01/03/24 02:55 62 96 01/03/24 02:50 66 98 01/03/24 02:48 62 107/64 01/03/24 02:45 65 97 01/03/24 02:40 64 99 01/03/24 02:35 65 98 01/03/24 02:33 60 93/54 L 01/03/24 02:30 64 97 01/03/24 02:25 64 97 01/03/24 02:20 65 96 01/03/24 02:17 64 101/58 L 01/03/24 02:15 64 97 01/03/24 02:10 68 98 01/03/24 02:05 65 99 01/03/24 02:04 66 96/53 L 01/03/24 02:00 64 98 01/03/24 01:55 69 98 01/03/24 01:50 66 99 01/03/24 01:48 69 100/66 01/03/24 01:45 71 100 01/03/24 01:40 72 100 01/03/24 01:35 75 100 01/03/24 01:34 78 115/60 01/03/24 01:30 85 100 01/03/24 01:25 70 99 01/03/24 01:20 59 L 98 01/03/24 01:17 66 110/69 01/03/24 01:15 61 99 01/03/24 01:10 60 98 01/03/24 01:05 73 99 01/03/24 01:02 63 107/69 01/03/24 01:00 16 01/03/24 01:00 63 98 01/03/24 00:55 72 99 01/03/24 00:50 59 L 99 01/03/24 00:48 56 L 101/63 01/03/24 00:45 16 01/03/24 00:45 58 L 98 01/03/24 00:40 59 L 98 01/03/24 00:35 58 L 97 01/03/24 00:33 54 L 111/72 01/03/24 00:30 20 01/03/24 00:30 70 97 01/03/24 00:25 59 L 96 01/03/24 00:20 57 L 97 01/03/24 00:18 55 L 110/72 01/03/24 00:15 16 01/03/24 00:15 52 L 97 01/03/24 00:10 59 L 98 01/03/24 00:05 56 L 98 01/03/24 00:00 18 01/03/24 00:00 67 99 01/02/24 23:57 61 119/75 01/02/24 23:55 57 L 97 01/02/24 23:54 56 L 110/68 01/02/24 23:50 62 100 01/02/24 23:48 58 L 110/74 01/02/24 23:45 16 01/02/24 23:45 56 L 99 01/02/24 23:42 58 L 115/69 01/02/24 23:40 65 97 01/02/24 23:38 54 L 115/70 01/02/24 23:35 56 L 100 01/02/24 23:32 56 L 112/71 01/02/24 23:30 18 01/02/24 23:30 56 L 98 01/02/24 23:28 58 L 112/71 01/02/24 23:25 56 L 98 01/02/24 23:22 58 L 106/70 01/02/24 23:20 58 L 98 01/02/24 23:17 56 L 103/66 01/02/24 23:15 20 01/02/24 23:15 57 L 96 01/02/24 23:12 55 L 100/62 01/02/24 23:10 56 L 96 01/02/24 23:08 58 L 104/65 01/02/24 23:05 61 98 01/02/24 23:01 74 103/57 L 01/02/24 23:00 36.8 C 18 01/02/24 23:00 93 01/02/24 23:00 62 03/16/24 23:00 59 L 93 01/02/24 22:59 65 107/56 L 01/02/24 22:57 53 L 101/57 L 01/02/24 22:55 98 01/02/24 22:55 50 L 01/02/24 22:55 51 L 109/58 L 01/02/24 22:53 61 103/60 01/02/24 22:50 72 97 01/02/24 22:45 64 99 01/02/24 22:40 58 L 99 01/02/24 22:35 68 99 01/02/24 22:34 64 93 01/02/24 22:30 68 98 01/02/24 22:28 63 93 01/02/24 22:25 55 L 99 01/02/24 22:23 61 92 01/02/24 22:20 66 99 01/02/24 22:16 64 93 01/02/24 22:15 53 L 100 01/02/24 22:10 61 99 01/02/24 19:11 37.3 C 18 01/02/24 19:11 71 125/75 01/02/24 17:13 36.7 C 01/02/24 17:12 67 117/72
[2024-01-03] MEDS: OXYTOCIN 30 UNITS/NSS 30 UNITS/500 ML BAG IV PRN (03:20)
--- NOTE | 2024-01-03 03:33 | Delivery Summary ---
Vaginal Delivery Summary Date of Service January 03, 2024 Vaginal Delivery Summary stillborn male over intact perineum with nuchal cord x1. Cord cut followed by spontaneous delivery of intact placenta with thick meconium mixed with large clot.. Suspect possible abruption upon inspection of placenta. No tears. EBL 100 ml. Mom and dad bonding with baby. Final sponge and instrument count are correct.
[2024-01-03] MEDS: ePHEDrine sulfate 50 MG/ML AMP ONE (03:50)
[2024-01-03] MEDS ORDERED: OXYTOCIN 30 UNITS/NSS 30 UNITS/500 ML BAG IV PRN (04:02)
[2024-01-03] MEDS ORDERED: bisacodyL 10 MG SUPP PR PRN (04:02)
[2024-01-03] MEDS ORDERED: HYDROCORTISONE ACETATE 25 MG SUPP PR PRN (04:02)
[2024-01-03] MEDS ORDERED: BENZOCAINE 20% SPRY 85 APPLN/85 GM CAN EXT PRN (04:02)
[2024-01-03] MEDS: IBUPROFEN 600 MG TAB PO PRN (04:32)
[2024-01-03] MEDS: DIPHTHER/TETAN/PERTUS Vaccine (Tdap, Adol/Adult) 0.5mL IM ONE (05:18)
[2024-01-03] MEDS ORDERED: SODIUM CHLORIDE 0.9% 250 ML IV PRN (05:56)
--- NOTE | 2024-01-03 07:33 | Anesthesia Procedure Note ---
Date of Service January 03, 2024 Anesthesia Post Epidural Note Vital Signs Vital Signs: Temp Pulse Resp BP Pulse Ox 37.1 C 66 16 112/76 97 01/03/24 05:25 01/03/24 05:24 01/03/24 01:00 01/03/24 05:24 01/03/24 03:40 Pain Intensity Abdomen: Pain Intensity: 5 Notes Mental Status: alert / awake / arousable and participated in evaluation Nausea / Vomiting: adequately controlled Pain: adequately controlled Airway Patency, RR, SpO2: stable & adequate BP & HR: stable & adequate Hydration State: stable & adequate Neuraxial Anesthesia: was administered and sensory block is resolving Anesthetic Complications: no major complications apparent Epidural: Removed without complications and With tip intact
[2024-01-03] MEDS: DOCUSATE SODIUM 100 MG CAP PO SCH (15:46)
[2024-01-03] MEDS: FERROUS SULFATE 325 MG TAB PO SCH (15:46)
[2024-01-03] MEDS: PRENATAL VITAMIN 1 TAB PO SCH (15:46)
[2024-01-04 06:25] LABS: Hematocrit (blood only) 35.9 % (37.0-47.0); Hemoglobin 11.9 g/dl (12.0-16.0); Mean Corpuscular Hemoglobin 31.1 pg (25.0-34.0); Mean Corpuscular Hgb Conc 33.1 g/dL (32.0-36.0); Mean Corpuscular Volume 93.7 fL (80.0-100.0); Mean Platelet Volume 9.5 fL (9.4-12.4); Platelet Count 170 K/uL (130-400); RDW Coefficient of Variation 12.9 % (11.5-14.5); RDW Standard Deviation 43.7 fL (36.4-46.3); Red Blood Count 3.83 M/uL (4.20-5.40); White Blood Count 12.39 K/ul (4.8-10.8)
[2024-01-04] MEDS: ACETAMINOPHEN 325 MG TAB PO PRN (07:13)
--- NOTE | 2024-01-04 07:53 | Obstetrical Progress Note ---
Date of Service January 04, 2024 Subjective Ambulation: ambulating normally Voiding: no voiding problems Passing Gas:: Yes Diet Tolerance:: regular diet Lochia:: Small Current Pain Level(1-10): 0 doing wekk Physical Exam Constitutional WD/WN, vitals as above Musculoskeletal Extremities: extremities normal to inspection Skin no rashes, warm and dry Neurologic patellar DTR's 2+ bilat, sensation intact Psychiatric A+Ox3, euthymic affect Results & Data Vital Signs (Past 12 Hours) Vital Signs Temp Pulse Resp BP 01/04/24 07:15 64 109/75 01/04/24 00:27 36.9 C 18 01/04/24 00:27 65 114/70 Laboratory Results 01/02/24 01/02/24 01/04/24 11:55 13:08 06:07 WBC 10.80 12.39 H RBC 4.32 3.83 L Hgb 13.6 11.9 L Hct 39.8 35.9 L MCV 92.1 93.7 MCH 31.5 31.1 MCHC 34.2 33.1 RDW Std Deviation 41.2 43.7 RDW Coeff of Kalee 12.2 12.9 Plt Count 233 170 MPV 9.8 9.5 Sodium 139 Potassium 4.0 Chloride 108 H Carbon Dioxide 23 Anion Gap 8 BUN 12 Creatinine 0.77 Est Cr Clr Drug Dosing 131.8 Est GFR ( Amer) 124.4 Est GFR (Non-Af Amer) 107.3 BUN/Creatinine Ratio 15.6 Glucose 95 Calcium 9.6 Total Bilirubin 0.2 Direct Bilirubin 0.0 AST 14 ALT 11 Alkaline Phosphatase 137 H Total Protein 7.0 Albumin 3.6 Globulin 3.4 Albumin/Globulin Ratio 1.1 Urine Opiates Screen Neg Ur Methadone, Qual Neg Urine Barbiturates Neg Ur Phencyclidine (PCP) Neg U Amphetamin/Meth Scrn Neg MDMA (Ecstasy) Screen Neg U Benzodiazepines Scrn Neg Ur Cocaine Metabolite Neg U Marijuana (THC) Screen Neg Blood Type A Positive Antibody Screen NEGATIVE Crossmatch See Detail
[2024-01-04] MEDS ORDERED: bisacodyL 5 MG TABEC PO SCH (20:00)
== END 2024-01-04 09:20 | disposition home or self-care (01) | DRG 805 ==
LOC: OPB 11:50 → 4S1 11:56